=== PATIENT | male | born 1965 | race Caucasian/White ===

== ENCOUNTER 2020-05-28 15:25 | Inpatient (IN) | payer OTHER ==
[2020-05-28] MEDS ORDERED: IPRATROPIUM-ALBUTEROL 3 ML NEB INHALATION STA (16:02)
[2020-05-28] MEDS ORDERED: SODIUM CHLORIDE 0.9% 500 ML 500 ML IV STA (16:02)
--- NOTE | 2020-05-28 16:06 | ED ---
General Adult HPI - General Chief complaint: Weakness Stated complaint: weakness Time Seen by Provider: 05/28/20 15:45 Source: patient, EMS, RN notes reviewed, old records reviewed Limitations: no limitations - History of Present Illness Initial comments: This is a 54-year-old male who presents emergency department stating that he thinks he has grown a virus because he been short of breath over the last couple of weeks. Patient denies any cough. Patient denies any chest pain or palpitations. [place] and some of those people could've had coronavirus. Patient denies any abdominal pain. Patient denies nausea vomiting diarrhea. Patient denies headache patient denies numbness weakness per patient denies lightheadedness or dizziness. Patient states he also feels a little dehydrated even though he is eating and drinking normally. Patient denies any recent injury or trauma. - Related Data Home Medications Medication Instructions Recorded Confirmed No Known Home Medications 05/28/20 05/28/20 Allergies Allergy/AdvReac Type Severity Reaction Status Date / Time No Known Allergies Allergy Verified 05/28/20 17:39 Review of Systems ROS Statement: Those systems with pertinent positive or pertinent negative responses have been documented in the HPI. ROS Other: All systems not noted in ROS Statement are negative. Past Medical History Past Medical History: No Reported History History of Any Multi-Drug Resistant Organisms: None Reported Past Surgical History: Orthopedic Surgery Past Psychological History: No Psychological Hx Reported Smoking Status: Current every day smoker Past Alcohol Use History: Occasional Past Drug Use History: Marijuana General Exam - General Exam Comments Initial Comments: GENERAL: Patient is well-developed and well-nourished. Patient is nontoxic and well- hydrated and is in mild distress. ENT: Neck is soft and supple. No significant lymphadenopathy is noted. Oropharynx is clear. Moist mucous membranes. Neck has full range of motion without eliciting any pain. EYES: The sclera were anicteric and conjunctiva were pink and moist. Extraocular movements were intact and pupils were equal round and reactive to light. Eyelids were unremarkable. PULMONARY: Unlabored respirations. Good breath sounds bilaterally. No audible rales rhonchi or wheezing was noted. CARDIOVASCULAR: There is a regular rate and rhythm without any murmurs gallops or rubs. ABDOMEN: Soft and nontender with normal bowel sounds. SKIN: Skin is clear with no lesions or rashes and otherwise unremarkable. NEUROLOGIC: Patient is alert and oriented x3. Cranial nerves II through XII are grossly intact. Motor and sensory are also intact. Normal speech, volume and content. Symmetrical smile. MUSCULOSKELETAL: Normal extremities with adequate strength and full range of motion. No lower extremity swelling or edema. No calf tenderness. LYMPHATICS: No significant lymphadenopathy is noted PSYCHIATRIC: Normal psychiatric evaluation. Limitations: no limitations Course Vital Signs 05/28/20 05/28/20 05/28/20 15:44 17:58 18:08 Temperature 98.4 F Pulse Rate 101 H 95 94 Respiratory 17 Rate Blood Pressure 109/90 O2 Sat by Pulse 98 Oximetry Medical Decision Making - Medical Decision Making EKG shows sinus rhythm with occasional PAC at 99 bpm MS interval 280 QRSs 112 QTC intervals 408 QTC is 523. Patient's EKG shows no ST segment elevation or depression. CT of the chest shows no pulmonary edema in no acute abnormality. Patient urine came back and showed urinary tract infection at 7:45 PM. Patient received antibiotics and a blood culture at this time. Patient this time was considered septic. I spoke with Dr. Parks he agreed to admit the patient admitted the patient wrote admitting orders continued antibiotics on the floor. Patient received magnesium and potassium in the emergency department. Patient's ideal body weight is 78 kg. - Lab Data Result diagrams: 05/28/20 16:05 05/28/20 15:50 Lab Results 05/28/20 05/28/20 05/28/20 Range/Units 15:50 15:50 15:50 WBC (3.8-10.6) k/uL RBC (4.30-5.90) m/uL Hgb (13.0-17.5) gm/dL Hct (39.0-53.0) % MCV (80.0-100.0) fL MCH (25.0-35.0) pg MCHC (31.0-37.0) g/dL RDW (11.5-15.5) % Plt Count (150-450) k/uL Neutrophils % % Lymphocytes % % Monocytes % % Eosinophils % % Basophils % % Neutrophils # (1.3-7.7) k/uL Lymphocytes # (1.0-4.8) k/uL Monocytes # (0-1.0) k/uL Eosinophils # (0-0.7) k/uL Basophils # (0-0.2) k/uL Manual Slide Review Poikilocytosis (manual Macrocytosis PT 11.3 (9.0-12.0) sec INR 1.1 (<1.2) APTT 21.3 L (22.0-30.0) sec D-Dimer 1.56 H (<0.60) mg/L FEU Sodium 127 L (137-145) mmol/L Potassium 2.6 L* (3.5-5.1) mmol/L Chloride 83 L (98-107) mmol/L Carbon Dioxide 26 (22-30) mmol/L Anion Gap 18 mmol/L BUN 44 H (9-20) mg/dL Creatinine 1.43 H (0.66-1.25) mg/dL Est GFR (CKD-EPI)AfAm 63 (>60 ml/min/1.73 sqM) Est GFR (CKD-EPI)NonAf 55 (>60 ml/min/1.73 sqM) Glucose 114 H (74-99) mg/dL Lactic Ac Sepsis Rflx Plasma Lactic Acid Grant 2.3 H* (0.7-2.0) mmol/L Calcium 8.9 (8.4-10.2) mg/dL Magnesium 1.3 L (1.6-2.3) mg/dL Total Bilirubin 1.6 H (0.2-1.3) mg/dL AST 42 (17-59) U/L ALT 33 (4-49) U/L Alkaline Phosphatase 73 (38-126) U/L Troponin I (0.000-0.034) ng/mL NT-Pro-B Natriuret Pep pg/mL Total Protein 7.2 (6.3-8.2) g/dL Albumin 3.5 (3.5-5.0) g/dL Urine Color Urine Appearance (Clear) Urine pH (5.0-8.0) Ur Specific [place] (1.001-1.035) Urine Protein (Negative) Urine Glucose (UA) (Negative) Urine Ketones (Negative) Urine Blood (Negative) Urine Nitrite (Negative) Urine Bilirubin (Negative) Urine Urobilinogen (<2.0) mg/dL Ur Leukocyte Esterase (Negative) Urine WBC (0-5) /hpf Urine WBC Clumps (None) /hpf Ur Squamous Epith Cells (0-4) /hpf Urine Bacteria (None) /hpf Hyaline Casts (0-2) /lpf Urine Mucus (None) /hpf 05/28/20 05/28/20 05/28/20 Range/Units 15:50 16:05 16:05 WBC 16.7 H (3.8-10.6) k/uL RBC 3.69 L (4.30-5.90) m/uL Hgb 14.0 (13.0-17.5) gm/dL Hct 40.3 (39.0-53.0) % MCV 109.1 H (80.0-100.0) fL MCH 37.9 H (25.0-35.0) pg MCHC 34.7 (31.0-37.0) g/dL RDW 13.6 (11.5-15.5) % Plt Count 242 (150-450) k/uL Neutrophils % 78 % Lymphocytes % 11 % Monocytes % 9 % Eosinophils % 1 % Basophils % 0 % Neutrophils # 12.9 H (1.3-7.7) k/uL Lymphocytes # 1.9 (1.0-4.8) k/uL Monocytes # 1.5 H (0-1.0) k/uL Eosinophils # 0.1 (0-0.7) k/uL Basophils # 0.1 (0-0.2) k/uL Manual Slide Review Performed Poikilocytosis (manual Present Macrocytosis Marked A PT (9.0-12.0) sec INR (<1.2) APTT (22.0-30.0) sec D-Dimer (<0.60) mg/L FEU Sodium (137-145) mmol/L Potassium (3.5-5.1) mmol/L Chloride (98-107) mmol/L Carbon Dioxide (22-30) mmol/L Anion Gap mmol/L BUN (9-20) mg/dL Creatinine (0.66-1.25) mg/dL Est GFR (CKD-EPI)AfAm (>60 ml/min/1.73 sqM) Est GFR (CKD-EPI)NonAf (>60 ml/min/1.73 sqM) Glucose (74-99) mg/dL Lactic Ac Sepsis Rflx Plasma Lactic Acid [place] (0.7-2.0) mmol/L Calcium (8.4-10.2) mg/dL Magnesium (1.6-2.3) mg/dL Total Bilirubin (0.2-1.3) mg/dL AST (17-59) U/L ALT (4-49) U/L Alkaline Phosphatase (38-126) U/L Troponin I 0.013 (0.000-0.034) ng/mL NT-Pro-B Natriuret Pep 596 pg/mL Total Protein (6.3-8.2) g/dL Albumin (3.5-5.0) g/dL Urine Color Urine Appearance (Clear) Urine pH (5.0-8.0) Ur Specific [place] (1.001-1.035) Urine Protein (Negative) Urine Glucose (UA) (Negative) Urine Ketones (Negative) Urine Blood (Negative) Urine Nitrite (Negative) Urine Bilirubin (Negative) Urine Urobilinogen (<2.0) mg/dL Ur Leukocyte Esterase (Negative) Urine WBC (0-5) /hpf Urine WBC Clumps (None) /hpf Ur Squamous Epith Cells (0-4) /hpf Urine Bacteria (None) /hpf Hyaline Casts (0-2) /lpf Urine Mucus (None) /hpf 05/28/20 05/28/20 05/28/20 Range/Units 16:43 19:07 19:24 WBC (3.8-10.6) k/uL RBC (4.30-5.90) m/uL Hgb (13.0-17.5) gm/dL Hct (39.0-53.0) % MCV (80.0-100.0) fL MCH (25.0-35.0) pg MCHC (31.0-37.0) g/dL RDW (11.5-15.5) % Plt Count (150-450) k/uL Neutrophils % % Lymphocytes % % Monocytes % % Eosinophils % % Basophils % % Neutrophils # (1.3-7.7) k/uL Lymphocytes # (1.0-4.8) k/uL Monocytes # (0-1.0) k/uL Eosinophils # (0-0.7) k/uL Basophils # (0-0.2) k/uL Manual Slide Review Poikilocytosis (manual Macrocytosis PT (9.0-12.0) sec INR (<1.2) APTT (22.0-30.0) sec D-Dimer (<0.60) mg/L FEU Sodium (137-145) mmol/L Potassium (3.5-5.1) mmol/L Chloride (98-107) mmol/L Carbon Dioxide (22-30) mmol/L Anion Gap mmol/L BUN (9-20) mg/dL Creatinine (0.66-1.25) mg/dL Est GFR (CKD-EPI)AfAm (>60 ml/min/1.73 sqM) Est GFR (CKD-EPI)NonAf (>60 ml/min/1.73 sqM) Glucose (74-99) mg/dL Lactic Ac Sepsis Rflx Y Plasma Lactic Acid [place] 1.6 (0.7-2.0) mmol/L Calcium (8.4-10.2) mg/dL Magnesium (1.6-2.3) mg/dL Total Bilirubin (0.2-1.3) mg/dL AST (17-59) U/L ALT (4-49) U/L Alkaline Phosphatase (38-126) U/L Troponin I (0.000-0.034) ng/mL NT-Pro-B Natriuret Pep pg/mL Total Protein (6.3-8.2) g/dL Albumin (3.5-5.0) g/dL Urine Color Yellow Urine Appearance Cloudy (Clear) Urine pH 5.5 (5.0-8.0) Ur Specific [place] 1.040 H (1.001-1.035) Urine Protein Trace H (Negative) Urine Glucose (UA) Negative (Negative) Urine Ketones Trace H (Negative) Urine Blood Small H (Negative) Urine Nitrite Negative (Negative) Urine Bilirubin Negative (Negative) Urine Urobilinogen 3.0 (<2.0) mg/dL Ur Leukocyte Esterase Large H (Negative) Urine WBC >182 H (0-5) /hpf Urine WBC Clumps Many H (None) /hpf Ur Squamous Epith Cells 5 H (0-4) /hpf Urine Bacteria Occasional H (None) /hpf Hyaline Casts 8 H (0-2) /lpf Urine Mucus Rare H (None) /hpf Critical Care Time Critical Care Time: Yes Total Critical Care Time: 35 Disposition Clinical Impression: Urinary tract infection, Sepsis, Hypokalemia, Hypomagnesemia Disposition: ADMITTED IP TO THIS HOSP Referrals: None,Stated [Primary Care Provider] - 1-2 days Time of Disposition: 20:25
[2020-05-28 16:41] LABS: Albumin 3.5 g/dL (3.5-5.0); Calcium 8.9 mg/dL (8.4-10.2); Magnesium 1.3 mg/dL (1.6-2.3); Total Bilirubin 1.6 mg/dL (0.2-1.3); Total Protein 7.2 g/dL (6.3-8.2)
[2020-05-28 16:43] LABS: Potassium 2.6 mmol/L (3.5-5.1)
[2020-05-28 16:51] LABS: INR 1.1 (<1.2); Partial Thromboplastin Time 21.3 sec (22.0-30.0); Prothrombin Time 11.3 sec (9.0-12.0)
[2020-05-28 17:02] LABS: D-Dimer 1.56 mg/L FEU (<0.60)
[2020-05-28 17:26] LABS: Basophils # (A) 0.1 k/uL (0-0.2); Basophils % (A) 0 %; Eosinophils # (A) 0.1 k/uL (0-0.7); Eosinophils % (A) 1 %; HCT 40.3 % (39.0-53.0); Lymphocytes # (A) 1.9 k/uL (1.0-4.8); Lymphocytes % (A) 11 %; MCH 37.9 pg (25.0-35.0); MCHC 34.7 g/dL (31.0-37.0); MCV 109.1 fL (80.0-100.0); Macrocytosis Marked; Mean Platelet Volume 10.1; Monocytes # (A) 1.5 k/uL (0-1.0); Monocytes % (A) 9 %; Neutrophils # (A) 12.9 k/uL (1.3-7.7); Neutrophils % (A) 78 %; Platelet Count 242 k/uL (150-450); RBC 3.69 m/uL (4.30-5.90); RDW 13.6 % (11.5-15.5); WBC 16.7 k/uL (3.8-10.6)
--- NOTE | 2020-05-28 17:26 | XR ---
EXAMINATION: XR chest 2V DATE AND TIME: 05/28/2020 4:58 PM CLINICAL INDICATION: PHH; difficulty breathing TECHNIQUE: Departmental protocol COMPARISON: None FINDINGS: The lungs appear negative for acute processes. There appear to be two surgical clips which reject within the right lower lobe posterolaterally. The right pleural space shows blunting of the costophrenic angle on the right, with differential incl uding pleural thickening and/or scarring, versus small pleural effusion. However, the lateral view do es not confirm pleural effusion and, therefore, the finding is likely the former. The cardiac silhouette is not enlarged. The remainder of the mediastinal silhouette is unremarkable. The skeletal structures and soft tissues are negative for acute findings. IMPRESSION: 1. No acute pulmonary/pleural process. 2. Subtle right pleural space finding, likely representing peripheral thickening and/or scarring, tre tomically related to surgical clips.
[2020-05-28 17:47] LABS: Poikilocytosis (M) Present
[2020-05-28] MEDS ORDERED: SODIUM CHLORIDE 0.9% 500 ML 500 ML IV ONE (18:45)
--- NOTE | 2020-05-28 18:55 | CT ---
EXAMINATION TYPE: CT chest angio for PE with contrast and with 3-D reconstruction renderings DATE OF EXAM: 05/28/2020 COMPARISON: Chest x-ray 05/28/2020 HISTORY: elevated d-dimer, SOB, fatigue TECHNIQUE: Departmental protocol. Automated exposure control for dose reduction was used. CT DLP: 476.8 mGycm CONTRAST: CT Chest for pulmonary embolism performed with with IV Contrast, patient injected with 73cc mL of Isovue 370. FINDINGS: LUNGS: The airways unremarkable. The left lung is clear and well expanded. The right lung shows scatt ered ill-defined bands of added opacity in the upper and mid and lower lung zone, most notable in the lower lung zone. These are consistent with pulmonary scarring changes. If there is an outside prior CT, with advise direct comparison for an addendum to be made to this report. If none exist, then six- month follow-up CT characterization is recommended. PLEURAL SPACES: There is no pleural effusion or pneumothorax seen. MEDIASTINUM: There is satisfactory enhancement of the pulmonary artery and its branches, without defi nite CT evidence of pulmonary embolism. The aorta is unremarkable. There is evidence of moderate left ventricular hypertrophy. There is no cardiomegaly or pericardial effusion, but prominent left and ri ght coronary calcifications are demonstrated. There are no greater than 1 cm hilar or mediastinal lym ph nodes. No pericardial effusion is seen. OTHER: No additional significant abnormality is seen. IMPRESSION: 1. Negative for pulmonary embolism. 2. No acute pulmonary/pleural process/mediastinal. 3. Coronary calcifications with left ventricular hypertrophy. 4. Right lung parenchyma scarring, with six-month follow-up chest CT is advised unless direct compar rose can be made to a prior CT.
[2020-05-28] MEDS: POTASSIUM CHLORIDE ER 20 MEQ TAB.ER PO STA ×2 (19:12→20:13)
[2020-05-28] MEDS ORDERED: MAGNESIUM SULFATE-D5W PMX 1 GM in DEXTROSE/WATER 1 100ML.BAG IVPB ONE (19:24)
[2020-05-28] MEDS ORDERED: POTASSIUM CHLORIDE 20 MEQ in WATER FOR INJECTION 1 100ML.BAG IVPB ONE (19:30)
[2020-05-28 19:47] LABS: Appearance,Urine Cloudy (Clear); Bacteria,Urine Occasional /hpf; Bilirubin,Urine Negative (Negative); Blood,Urine Small (Negative); Color,Urine Yellow; Glucose,Urine (UA) Negative (Negative); Hyaline Casts,Urine 8 /lpf (0-2); Ketones,Urine Trace (Negative); Leukocyte Esterase,Urine Large (Negative); Mucus,Urine Rare /hpf; Nitrite,Urine Negative (Negative); PH, Urine 5.5 (5.0-8.0); Protein,Urine Trace (Negative); Squamous Epithelial Cell,Urine 5 /hpf (0-4); WBC,Urine >182 /hpf (0-5)
[2020-05-28] MEDS ORDERED: cefTRIAXone IN SWFI 1,000 MG/10 ML SYRINGE IVP STA (20:26)
[2020-05-28] MEDS ORDERED: SODIUM CHLORIDE 0.9% 1,000 ML IV ONE (20:26)
[2020-05-28] MEDS ORDERED: VANCOMYCIN IV PER PHARMACY 1 EACH MISC MISCELLANE PRN (20:27)
[2020-05-28] MEDS ORDERED: VANCOMYCIN 2,000 MG in SODIUM CHLORIDE 0.9% 500 ML 500 ML IVPB ONE (21:00)
[2020-05-28] MEDS ORDERED: LORazepam 2 MG/ML INJ IV STA (21:09)
[2020-05-28] MEDS: SODIUM CHLORIDE 0.9% 1,000 ML IV SCH (21:55)
[2020-05-28] MEDS ORDERED: ZOLPIDEM 5 MG TAB PO PRN (23:06)
[2020-05-28] MEDS ORDERED: LORazepam 2 MG/ML INJ IV PRN (23:07)
[2020-05-28] MEDS: LORazepam 2 MG/ML INJ IV PRN (23:14)
--- NOTE | 2020-05-29 00:05 | HP ---
HISTORY AND PHYSICAL A 54-year-old white male presents to the ER, short of breath over the last couple weeks, thought he had a virus. Denies any cough. CT of the chest was negative. He was around a lot of people that could have coronavirus. Denies abdominal pain, nausea, vomiting, diarrhea. He denied numbness or weakness or lightheaded, dizziness. He feels a little dehydrated. HOME MEDICINES: Negative. ALLERGIES: Negative. Current every day smoker. Occasional marijuana. REVIEW OF SYSTEMS: Fourteen-point review of systems negative. PHYSICAL EXAMINATION: Well developed, well nourished. HEENT: Neck supple. No mass. Pupils equal, round, reactive. LUNGS: Good breath sounds. No audible wheezes. CARDIAC: Regular rate and rhythm. ABDOMEN: Soft. SKIN: Warm and dry. Cranial nerves are intact neurologically. PSYCH: Fair mood and affect. Pulse is 95 to 100, temp 98.4, respiratory rate 16 to 18, blood pressure 109/90, O2 saturation 98. EKG sinus rhythm, no ST changes. CTA chest, no PE. UA shows severely high amount of white cells over 120. Blood cultures are being done. ASSESSMENT: 1. Urosepsis. 2. Hypokalemia. 3. Lactic acidosis. 4. Hyponatremia. 5. Leukocytosis secondary to urosepsis. 6. Prerenal renal insufficiency with dehydration. Broad-spectrum antibiotics, fluids. Monitor labs. Infectious Disease consult. Possible discharge if patient improves in the next couple days. He has sepsis due to UTI, hypokalemia, hypomagnesemia, replace electrolytes. MMODL / IJN: [id number] /
[2020-05-29] MEDS: LORazepam 2 MG/ML INJ IV PRN ×6 (01:19→20:14)
[2020-05-29] MEDS: SODIUM CHLORIDE 0.9% 1,000 ML IV SCH ×3 (05:53→20:13)
[2020-05-29] MEDS: VANCOMYCIN 2,000 MG in SODIUM CHLORIDE 0.9% 500 ML 500 ML IVPB SCH ×2 (10:05→23:36)
--- NOTE | 2020-05-30 00:09 | P.CONS ---
History of Present Illness - Reason for Consult Consult date: 05/29/20 Urosepsis Requesting physician: Jaya Parks - Chief Complaint Weakness x few days - History of Present Illness Patient is a 54-year-old male presenting to the hospital with generalized weakness and thinking he may have allen virus as he was marked with a bunch of people that have been infected however the patient denies having any fever or any chills on arrival to ER no shortness of breath no cough patient on arrival to the ER was noticed to be afebrile he did have elevated white count of 16,000 with a left shift no lymphopenia elevated d-dimer he did have a positive UA patient chest x-ray was negative subsequently did have CT angiogram that was negative for PE and did not show any groundglass opacities patient did have a nasopharyngeal swab which came back negative as well , Patient has been diagnosed with alcohol withdrawal DTs and has been started on Ativan, patient has received a few doses and at time of evaluation was completely out and was unable to provide any history so most information has been obtained from review the chart patient has been started on Rocephin and vancomycin and infectious disease was consulted with concern for possible urosepsis Review of Systems Positive points has been mentioned in HPI complete review could not be obtained because of his underlying mental status Past Medical History Past Medical History: Pneumonia Additional Past Medical History / Comment(s): gastric ulcer, ETOH-liquor, beer, daily History of Any Multi-Drug Resistant Organisms: None Reported Past Surgical History: Joint Replacement, Orthopedic Surgery Additional Past Surgical History / Comment(s): total hip (unsure of which one), closed reductions, recent weight loss Past Psychological History: No Psychological Hx Reported Smoking Status: Current every day smoker Past Alcohol Use History: Occasional Past Drug Use History: Marijuana Medications and Allergies Home Medications Medication Instructions Recorded Confirmed Type No Known Home Medications 05/28/20 05/28/20 History Allergies Allergy/AdvReac Type Severity Reaction Status Date / Time No Known Allergies Allergy Verified 05/28/20 17:39 Physical Exam Vitals: Vital Signs Temp Pulse Pulse Resp BP BP Pulse Ox 05/29/20 13:22 97.8 F 100 16 103/68 96 05/29/20 11:15 96.9 F L 101 H 16 166/122 97 05/29/20 08:50 99 16 157/101 97 05/29/20 07:50 97.4 F L 05/29/20 02:30 91 18 127/84 98 05/28/20 21:58 98.3 F 90 18 155/95 97 05/28/20 18:08 94 05/28/20 17:58 95 05/28/20 15:44 98.4 F 101 H 17 109/90 98 Intake and Output 05/29/20 05/29/20 05/29/20 06:59 14:59 22:59 Other: Weight 127.006 kg GENERAL DESCRIPTION: Middle-aged male lying in bed, no distress. No tachypnea or accessory muscle of respiration use. HEENT: Shows Pallor , no scleral icterus. Oral mucous membrane is dry. No pharyngeal erythema or thrush NECK: Trachea central, no thyromegaly. LUNGS: Unlabored breathing. Clear to auscultation anteriorly. No wheeze or crackle. HEART: S1, S2, regular rate and rhythm. No loud murmur ABDOMEN: Soft, no tenderness , guarding or rigidity, no organomegaly EXTREMITIES: No edema of feet. SKIN: No rash, no masses palpable. NEUROLOGICAL: The patient is sedated orientation could not be determined Results CBC & Chem 7: 05/28/20 16:05 05/28/20 15:50 Labs: Abnormal Lab Results - Last 24 Hours (Table) 05/28/20 05/28/20 05/28/20 Range/Units 15:50 15:50 15:50 WBC (3.8-10.6) k/uL RBC (4.30-5.90) m/uL MCV (80.0-100.0) fL MCH (25.0-35.0) pg Neutrophils # (1.3-7.7) k/uL Monocytes # (0-1.0) k/uL Macrocytosis APTT 21.3 L (22.0-30.0) sec D-Dimer 1.56 H (<0.60) mg/L FEU Sodium 127 L (137-145) mmol/L Potassium 2.6 L* (3.5-5.1) mmol/L Chloride 83 L (98-107) mmol/L BUN 44 H (9-20) mg/dL Creatinine 1.43 H (0.66-1.25) mg/dL Glucose 114 H (74-99) mg/dL Plasma Lactic Acid Grant 2.3 H* (0.7-2.0) mmol/L Magnesium 1.3 L (1.6-2.3) mg/dL Total Bilirubin 1.6 H (0.2-1.3) mg/dL Ur Specific [place] (1.001-1.035) Urine Protein (Negative) Urine Ketones (Negative) Urine Blood (Negative) Ur Leukocyte Esterase (Negative) Urine WBC (0-5) /hpf Urine WBC Clumps (None) /hpf Ur Squamous Epith Cells (0-4) /hpf Urine Bacteria (None) /hpf Hyaline Casts (0-2) /lpf Urine Mucus (None) /hpf 05/28/20 05/28/20 Range/Units 16:05 19:24 WBC 16.7 H (3.8-10.6) k/uL RBC 3.69 L (4.30-5.90) m/uL MCV 109.1 H (80.0-100.0) fL MCH 37.9 H (25.0-35.0) pg Neutrophils # 12.9 H (1.3-7.7) k/uL Monocytes # 1.5 H (0-1.0) k/uL Macrocytosis Marked A APTT (22.0-30.0) sec D-Dimer (<0.60) mg/L FEU Sodium (137-145) mmol/L Potassium (3.5-5.1) mmol/L Chloride (98-107) mmol/L BUN (9-20) mg/dL Creatinine (0.66-1.25) mg/dL Glucose (74-99) mg/dL Plasma Lactic Acid Grant (0.7-2.0) mmol/L Magnesium (1.6-2.3) mg/dL Total Bilirubin (0.2-1.3) mg/dL Ur Specific [place] 1.040 H (1.001-1.035) Urine Protein Trace H (Negative) Urine Ketones Trace H (Negative) Urine Blood Small H (Negative) Ur Leukocyte Esterase Large H (Negative) Urine WBC >182 H (0-5) /hpf Urine WBC Clumps Many H (None) /hpf Ur Squamous Epith Cells 5 H (0-4) /hpf Urine Bacteria Occasional H (None) /hpf Hyaline Casts 8 H (0-2) /lpf Urine Mucus Rare H (None) /hpf Microbiology - Last 24 Hours (Table) 05/28/20 19:24 Urine Culture - Preliminary Urine,Voided Assessment and Plan Assessment: 1- patient presented to the hospital with weakness in this patient did have significantly elevated white count he did have a positive UA with concern for symptomatic urinary tract infection patient currently undergoing DTs and has been sedated cerebral for a history however workup so far including a chest x- ray and CT angiogram that has been negative for PE or pneumonia abdominal soft with clinical examination and no evidence of any cellulitis (1) Urinary tract infection Current Visit: Yes Status: Acute Code(s): N39.0 - URINARY TRACT INFECTION, SITE NOT SPECIFIED SNOMED Code(s): 60705438 Plan: 1- Rocephin 1 g IV piggyback daily 2- discontinue vancomycin 3- IV fluids We will follow on clinical condition and cultures to further adjust medication if needed Thank you for this consultation will follow this patient with you Time with Patient: Greater than 30
[2020-05-30] MEDS: LORazepam 2 MG/ML INJ IV PRN ×4 (03:46→08:03)
[2020-05-30] MEDS: SODIUM CHLORIDE 0.9% 1,000 ML IV SCH ×3 (03:51→17:43)
[2020-05-30 08:53] LABS: African American GFR (CKD) >90 (>60 ml/min/1.73 sqM); Non-African American GFR(CKD) >90 (>60 ml/min/1.73 sqM)
[2020-05-30 14:00] LABS: African American GFR (CKD) >90 (>60 ml/min/1.73 sqM); Anion Gap 9 mmol/L; Blood Urea Nitrogen 21 mg/dL (9-20); Calcium 8.3 mg/dL (8.4-10.2); Carbon Dioxide 25 mmol/L (22-30); Chloride 99 mmol/L (98-107); Glucose 80 mg/dL (74-99); Magnesium 1.4 mg/dL (1.6-2.3); Non-African American GFR(CKD) >90 (>60 ml/min/1.73 sqM); Potassium 2.8 mmol/L (3.5-5.1); Sodium 133 mmol/L (137-145)
[2020-05-30] MEDS ORDERED: Potassium Replacement Protocol 1 EACH MISC MISCELLANE PRN (14:32)
[2020-05-30] MEDS ORDERED: Magnesium Replacement Protocol 1 EACH MISC MISCELLANE PRN (14:32)
[2020-05-30] MEDS: carvediloL 6.25 MG TAB PO SCH ×2 (14:42→16:09)
[2020-05-30] MEDS: POTASSIUM CHLORIDE ER 20 MEQ TAB.ER PO SCH ×2 (14:43→16:09)
[2020-05-30] MEDS: MAGNESIUM SULFATE-D5W PMX 1 GM in DEXTROSE/WATER 1 100ML.BAG IVPB SCH ×3 (14:43→17:39)
[2020-05-30] MEDS: THIAMINE 100 MG TAB PO SCH (16:09)
--- NOTE | 2020-05-30 16:38 | P.PN ---
Subjective Progress Note Date: 05/30/20 Principal diagnosis: this is a 54-year-old male who was recently admitted with shortness of breath and possible acute urinary tract infection and is being closely monitored. Cultures preliminary showing gram-negative bacilli and currently maintained on IV antibiotics in the form of ceftriaxone and will continue at this time. infectious disease is following. patient is also found to be hypokalemic and have hypomagnesemia and currently being replaced. Will repeat a.m. labs and monitor closely. only patient denies any chest pain, worsening shortness of breath, or palpitations. patient is afebrile. no reports of nausea or vomiting and patient is tolerating diet. Objective - Vital Signs Vital signs: Vital Signs Temp 97.6 F 05/30/20 07:53 Pulse 101 H 05/30/20 07:53 Resp 18 05/30/20 07:53 BP 169/101 05/30/20 07:53 Pulse Ox 97 05/30/20 07:53 Intake & Output 05/29/20 05/30/20 05/30/20 18:59 06:59 18:59 Intake Total 1800 Output Total 3 Balance 1797 Weight 127.006 kg Intake: Intake, IV Titration 1500 Amount Sodium Chloride 0.9% 1, 1000 000 ml @ 130 mls/hr IV . [id number] JACKIE Rx#:[id number] Vancomycin 2,000 mg In 500 Sodium Chloride 0.9% 500 ml 500 ml @ 167 mls/hr IVPB Q16H JACKIE Rx#: [id number] Oral 300 Output: Urine 3 Other: Voiding Method Incontinent # Voids 3 - Exam Gen: This is a 54-year-old male sitting up in bed, awake, alert and oriented 3, well-developed, well-nourished. HEENT: Head is atraumatic, normocephalic. Pupils equal, round. Sclerae is anicteric. NECK: Supple. No JVD. No lymphadenopathy. No thyromegaly. LUNGS: diminished breath sounds bilaterally noted with no wheezing or rhonchi noted. No intercostal retractions. HEART: S1, S2 ABDOMEN: Soft. Bowel sounds are present. No masses. No tenderness. EXTREMITIES: No pedal edema. No calf tenderness. NEUROLOGICAL: Patient is awake, alert and oriented x3. Cranial nerves 2 through 12 are grossly intact. - Labs CBC & Chem 7: 05/28/20 16:05 05/30/20 08:14 Labs: Abnormal Lab Results - Last 24 Hours (Table) 05/30/20 Range/Units 08:14 Sodium 133 L (137-145) mmol/L Potassium 2.8 L (3.5-5.1) mmol/L BUN 21 H (9-20) mg/dL Calcium 8.3 L (8.4-10.2) mg/dL Magnesium 1.4 L (1.6-2.3) mg/dL Microbiology - Last 24 Hours (Table) 05/28/20 19:24 Urine Culture - Preliminary Urine,Voided Gram Neg Bacilli 05/28/20 17:43 Blood Culture - Preliminary Blood No Growth after 24 hours Assessment and Plan Assessment: urosepsis, present on admission Hypokalemia Lactic acidosis Hyponatremia hypomagnesemia Leukocytosis secondary to urosepsis Prerenal renal insufficiency with dehydration plan: Continue current medications, management, and symptomatic treatment. continue to monitor electrolytes and replace as needed. will repeat a.m. labs. continue with IV fluid hydration. Further recommendations to follow.
[2020-05-31] MEDS: LORazepam 2 MG/ML INJ IV PRN (03:31)
[2020-05-31] MEDS: SODIUM CHLORIDE 0.9% 1,000 ML IV SCH ×2 (06:58→15:03)
--- NOTE | 2020-05-31 07:15 | PN ---
PROGRESS NOTE DATE OF SERVICE: 05/30/2020 REASON FOR FOLLOWUP: Urinary tract infection. INTERVAL HISTORY: Patient is currently afebrile. The patient seemed to be slightly more awake and alert today. He is breathing comfortably. Denies any headache. No chest pain. No abdominal pain or diarrhea. PHYSICAL EXAMINATION: Blood pressure 165/89 with a pulse of 87, temperature 98.1, he is 98% on room air. General description is a middle-aged male lying in bed in no distress. Respiratory system: Unlabored breathing. Clear to auscultation anteriorly. Heart S1, S2, regular rate and rhythm. Abdomen is soft, no tenderness. LABS: Urine showing gram-negative. DIAGNOSTIC IMPRESSION AND PLAN: Patient with gram-negative urinary tract infection. Patient is covered with Rocephin. To continue adjusting further based on culture report and monitor clinical course closely. MMODL / IJN: [id number] /
[2020-05-31 08:34] LABS: African American GFR (CKD) >90 (>60 ml/min/1.73 sqM); Anion Gap 9 mmol/L; Blood Urea Nitrogen 13 mg/dL (9-20); Calcium 8.1 mg/dL (8.4-10.2); Carbon Dioxide 21 mmol/L (22-30); Chloride 104 mmol/L (98-107); Glucose 61 mg/dL (74-99); Non-African American GFR(CKD) >90 (>60 ml/min/1.73 sqM); Sodium 134 mmol/L (137-145)
[2020-05-31 08:36] LABS: HCT 51.3 % (39.0-53.0); MCH 39.6 pg (25.0-35.0); MCHC 34.5 g/dL (31.0-37.0); Macrocytosis Marked; Mean Platelet Volume 9.4; RBC 4.47 m/uL (4.30-5.90); RDW 13.8 % (11.5-15.5); WBC 8.7 k/uL (3.8-10.6)
[2020-05-31 08:40] LABS: Magnesium 1.6 mg/dL (1.6-2.3)
[2020-05-31] MEDS ORDERED: Magnesium Replacement Protocol 1 EACH MISC MISCELLANE PRN (08:43)
[2020-05-31 08:44] LABS: HGB 17.7 gm/dL (13.0-17.5); MCV 114.8 fL (80.0-100.0); Platelet Count 117 k/uL (150-450)
[2020-05-31] MEDS: THIAMINE 100 MG TAB PO SCH ×2 (08:48→17:26)
[2020-05-31] MEDS: carvediloL 6.25 MG TAB PO SCH ×2 (08:48→17:26)
[2020-05-31] MEDS: ACETAMINOPHEN TAB 325 MG TAB PO PRN (09:01)
[2020-05-31] MEDS: MAGNESIUM SULFATE-D5W PMX 1 GM in DEXTROSE/WATER 1 100ML.BAG IVPB SCH ×2 (10:52→12:34)
--- NOTE | 2020-06-01 00:36 | PN ---
PROGRESS NOTE DATE OF SERVICE: 05/31/2020 REASON FOR FOLLOWUP: Klebsiella urinary tract infection. INTERVAL HISTORY: The patient is currently afebrile. The patient is breathing comfortably. He is more awake and alert. Denies having any headache. No chest pain, shortness of breath or cough. No abdominal pain or diarrhea. PHYSICAL EXAMINATION: Blood pressure 167/95 with a pulse of 83, temperature 98. He is 99% on room air. General description is a middle age male lying in bed in no distress. RESPIRATORY SYSTEM: Unlabored breathing, clear to auscultation anteriorly. HEART: S1, S2. Regular rate and rhythm. ABDOMEN: Soft, no tenderness. LABS: Hemoglobin is 17.7, white count 8.7, creatinine 0.66. Urine showing Klebsiella pneumoniae sensitive pathogen. DIAGNOSTIC IMPRESSION AND PLAN: Patient with Klebsiella urinary tract infection. Patient is covered with Rocephin to continue, finish therapy with oral Cipro on discharge. Monitor clinical course closely. MMODL / IJN: [id number] /
--- NOTE | 2020-06-01 01:15 | PN ---
PROGRESS NOTE This is a 54-year-old white male with alcohol encephalopathy, UTI, sepsis, leukocytosis. No chest pain or shortness of breath. No lightheadedness or syncope. Vital signs are stable, afebrile. CARDIOVASCULAR: S1, S2. LUNGS: Clear. GI: Soft. HEMATOLOGY: Negative Homans. ASSESSMENT: 1. Urinary tract infection. 2. Sepsis. 3. Leukocytosis. 4. Alcoholic encephalopathy. 5. Alcohol dependence. Continue with current treatment. Antibiotics, alcohol withdrawal treatment. Follow up in the next 24 to 48 hours. Possible discharge. MMODL / IJN: [id number] /
[2020-06-01] MEDS: SODIUM CHLORIDE 0.9% 1,000 ML IV SCH ×3 (02:53→19:56)
[2020-06-01] MEDS: THIAMINE 100 MG TAB PO SCH ×2 (07:53→16:22)
[2020-06-01] MEDS: carvediloL 6.25 MG TAB PO SCH ×2 (07:53→16:22)
[2020-06-01] MEDS: amLODIPine 5 MG TAB PO SCH (07:53)
[2020-06-01] MEDS: CIPROFLOXACIN HCL 500 MG TAB PO SCH ×2 (09:11→19:55)
[2020-06-01 10:35] LABS: ALT 21 U/L (4-49); AST 35 U/L (17-59); African American GFR (CKD) >90 (>60 ml/min/1.73 sqM); Albumin 2.4 g/dL (3.5-5.0); Alkaline Phosphatase 53 U/L (38-126); Anion Gap 7 mmol/L; Blood Urea Nitrogen 8 mg/dL (9-20); Calcium 7.9 mg/dL (8.4-10.2); Carbon Dioxide 26 mmol/L (22-30); Chloride 101 mmol/L (98-107); Glucose 65 mg/dL (74-99); Magnesium 1.4 mg/dL (1.6-2.3); Non-African American GFR(CKD) >90 (>60 ml/min/1.73 sqM); Potassium 3.1 mmol/L (3.5-5.1); Sodium 134 mmol/L (137-145); Total Bilirubin 0.8 mg/dL (0.2-1.3); Total Protein 5.6 g/dL (6.3-8.2)
[2020-06-01 10:36] LABS: Basophils % (A) 1 %; Eosinophils # (A) 0.2 k/uL (0-0.7); Eosinophils % (A) 3 %; HCT 36.5 % (39.0-53.0); Lymphocytes # (A) 1.7 k/uL (1.0-4.8); Lymphocytes % (A) 23 %; MCH 39.3 pg (25.0-35.0); MCHC 34.1 g/dL (31.0-37.0); MCV 115.2 fL (80.0-100.0); Macrocytosis Marked; Mean Platelet Volume 10.3; Monocytes # (A) 0.5 k/uL (0-1.0); Monocytes % (A) 7 %; Neutrophils # (A) 4.7 k/uL (1.3-7.7); Neutrophils % (A) 66 %; Platelet Count 166 k/uL (150-450); RBC 3.17 m/uL (4.30-5.90); RDW 13.9 % (11.5-15.5); WBC 7.1 k/uL (3.8-10.6)
[2020-06-01 10:39] LABS: HGB 12.5 gm/dL (13.0-17.5)
[2020-06-01] MEDS: MAGNESIUM SULFATE-D5W PMX 1 GM in DEXTROSE/WATER 1 100ML.BAG IVPB SCH ×3 (13:27→16:23)
[2020-06-01] MEDS: POTASSIUM CHLORIDE ER 20 MEQ TAB.ER PO SCH ×2 (13:27→14:27)
--- NOTE | 2020-06-01 21:42 | PN ---
PROGRESS NOTE DATE OF SERVICE: 06/01/2020 REASON FOR FOLLOWUP: Urinary tract infection. INTERVAL HISTORY: The patient is currently afebrile. The patient is breathing comfortably. The patient denies having any chest pain or shortness of breath or cough. No nausea, no vomiting, no abdominal pain or diarrhea. PHYSICAL EXAMINATION: Blood pressure 142/87, pulse 75, temperature 97.7. He is 97% on room air. General description is a young male lying in bed in no distress. RESPIRATORY SYSTEM: Unlabored breathing. Clear to auscultation anteriorly. HEART: S1, S2. Regular rate and rhythm. ABDOMEN: Soft. No tenderness. LABS: Hemoglobin is 10.5, white count 7.1, creatinine 0.61. Urine with Klebsiella. DIAGNOSTIC IMPRESSION AND PLAN: Patient with Klebsiella urinary tract infection. The patient is currently covered with Rocephin. Antibiotic has been switched to Cipro as well. To discontinue the Rocephin and monitor clinical course closely. MMODL / IJN: [id number] /
--- NOTE | 2020-06-02 00:40 | PN ---
PROGRESS NOTE A 54-year-old white male. Denies any chest pain or shortness of breath or cough. No nausea or vomiting. No abdominal pain. No diarrhea Temperature 97.7, O2 of 97% on room air, blood pressure is 140s over 80s. CARDIOVASCULAR: S1, S2. LUNGS: Are clear. GI: Soft. HEMATOLOGY: Negative Homans. Hemoglobin , white count 7.1, creatinine 0.61. Urine with Klebsiella. Klebsiella UTI, covered with Rocephin and switch to oral Cipro. Discharge home tomorrow as he is greatly improved from alcohol withdrawal and more mentally with it at this time. Go home on Cipro tomorrow. MMODL / IJN: [id number] /
[2020-06-02] MEDS: ACETAMINOPHEN TAB 325 MG TAB PO PRN ×4 (02:46→23:31)
[2020-06-02] MEDS: SODIUM CHLORIDE 0.9% 1,000 ML IV SCH (05:54)
[2020-06-02 08:37] LABS: HCT 33.8 % (39.0-53.0); HGB 11.4 gm/dL (13.0-17.5); MCH 37.8 pg (25.0-35.0); MCHC 33.7 g/dL (31.0-37.0); MCV 112.1 fL (80.0-100.0); Macrocytosis Marked; Mean Platelet Volume 9.4; Platelet Count 175 k/uL (150-450); RBC 3.01 m/uL (4.30-5.90); RDW 13.7 % (11.5-15.5); WBC 8.3 k/uL (3.8-10.6)
[2020-06-02 08:45] LABS: ALT 20 U/L (4-49); AST 30 U/L (17-59); African American GFR (CKD) >90 (>60 ml/min/1.73 sqM); Albumin 2.4 g/dL (3.5-5.0); Alkaline Phosphatase 50 U/L (38-126); Anion Gap 6 mmol/L; Blood Urea Nitrogen 6 mg/dL (9-20); Calcium 7.6 mg/dL (8.4-10.2); Carbon Dioxide 25 mmol/L (22-30); Chloride 105 mmol/L (98-107); Glucose 77 mg/dL (74-99); Magnesium 1.5 mg/dL (1.6-2.3); Non-African American GFR(CKD) >90 (>60 ml/min/1.73 sqM); Sodium 136 mmol/L (137-145); Total Bilirubin 0.8 mg/dL (0.2-1.3); Total Protein 5.5 g/dL (6.3-8.2)
[2020-06-02] MEDS: POTASSIUM CHLORIDE ER 20 MEQ TAB.ER PO SCH ×2 (09:38→12:06)
[2020-06-02] MEDS: THIAMINE 100 MG TAB PO SCH ×2 (09:39→18:10)
[2020-06-02] MEDS: amLODIPine 5 MG TAB PO SCH (09:39)
[2020-06-02] MEDS: carvediloL 6.25 MG TAB PO SCH ×2 (09:39→18:09)
[2020-06-02] MEDS: CIPROFLOXACIN HCL 500 MG TAB PO SCH ×2 (09:39→21:00)
--- NOTE | 2020-06-02 10:36 | P.DS ---
Providers Date of admission: 05/28/20 20:22 Expected date of discharge: 06/02/20 Attending physician: Jaya Parks Consults: 05/28/20 22:40 Consult Physician Routine Consulting Provider: Rossana Beck Consult Reason/Comments: urosepsis Do you want consulting provider notified?: Yes Primary care physician: Stated None Hospital Course: Final Diagnoses: Sepsis secondary to acute UTI with Klebsiella pneumoniae, present on admission Leukocytosis secondary to the above, resolved Lactic acidosis, resolved Hypovolemic hyponatremia, improving Acute renal failure, prerenal, secondary to dehydration, present on admission, improved Hypokalemia Hypomagnesemia History of alcohol abuse, reports decreased Alcohol use Ongoing Nicotine dependence History of peptic ulcer disease Hospital Course:This is a 54-year-old gentleman admitted with multiple medical issues, including sepsis, acute UTI, dehydration, electrolyte imbalance. Maintained on gentle IV fluid hydration, IV antibiotics as per infectious disease. Significant clinical improvement. Evaluated by PT/OT with subacute rehab recommended. Currently receiving supplementation for magnesium and potassium, recheck levels pending. Patient will be discharged today to subacute rehab., pending authorization, in a stable condition with guarded prognosis. Microbiology 05/28/20 17:43 Blood Blood Culture - Preliminary No Growth after 96 hours 05/28/20 19:24 Urine,Voided Urine Culture - Final Klebsiella pneumoniae The impression and plan of care has been dictated as directed. : I performed a history and examination of this patient, discussed the same with the dictator. I agree with the dictator's note ,documented as a scribe. Any additional findings or plans will be noted. Patient Condition at Discharge: Stable Plan - Discharge Summary New Discharge Prescriptions: New Ciprofloxacin HCl [Cipro] 500 mg PO BID #14 tab carvediloL [Coreg] 6.25 mg PO BID-W/MEALS #60 tab amLODIPine [Norvasc] 5 mg PO DAILY #30 tab Thiamine [Vitamin B-1] 100 mg PO DAILY #30 tab Folic Acid 1 mg PO DAILY #30 tablet Multivitamins, Thera [Multivitamin (formulary)] 1 tab PO DAILY #30 tablet Acetaminophen Tab [Tylenol] 650 mg PO Q6HR PRN tab PRN Reason: Fever And/ Or Pain Discharge Medication List Acetaminophen Tab [Tylenol] 650 mg PO Q6HR PRN tab 06/02/20 [Rx] Ciprofloxacin HCl [Cipro] 500 mg PO BID #14 tab 06/02/20 [Rx] Folic Acid 1 mg PO DAILY #30 tablet 06/02/20 [Rx] Multivitamins, Thera [Multivitamin (formulary)] 1 tab PO DAILY #30 tablet 06/02/20 [Rx] Thiamine [Vitamin B-1] 100 mg PO DAILY #30 tab 06/02/20 [Rx] amLODIPine [Norvasc] 5 mg PO DAILY #30 tab 06/02/20 [Rx] carvediloL [Coreg] 6.25 mg PO BID-W/MEALS #60 tab 06/02/20 [Rx] Follow up Appointment(s)/Referral(s): Jaya Parks MD [STAFF PHYSICIAN] - 3 Days Ambulatory/Diagnostic Orders: Complete Blood Count w/diff [LAB.AMB] Time Frame: 3 Days, Location: None Selected Activity/Diet/Wound Care/Special Instructions: Pending magnesium and potassium supplementation and recheck levels within normal limits.
[2020-06-02 11:59] LABS: Eosinophils # (M) 0.08 k/uL (0-0.7); Lymphocytes # (M) 1.66 k/uL (1.0-4.8); Monocytes # (M) 0.75 k/uL (0-1.0); Neutrophils # (M) 5.81 k/uL (1.3-7.7); Neutrophils % (M) 70 %; Nucleated Red Blood Cells 0 /100 WBC (0-0); Total Cells Counted 100
--- NOTE | 2020-06-02 12:54 | PN ---
PROGRESS NOTE DATE OF SERVICE: 06/02/2020 REASON FOR FOLLOWUP: Klebsiella urinary tract infection. INTERVAL HISTORY: Patient is currently afebrile. The patient is breathing comfortably. Denies having any chest pain, no cough. No nausea, no vomiting. No abdominal pain, no diarrhea. PHYSICAL EXAMINATION: Blood pressure 149/91 with a pulse of 79, temperature is 97.7, he is 99% on room air. General description is a middle-aged male, lying in bed in no distress. RESPIRATORY SYSTEM: Unlabored breathing, clear to auscultation anteriorly. HEART: S1, S2. Regular rate and rhythm. ABDOMEN: Soft, no tenderness. LABS: Hemoglobin 11.4, white count 8.3, BUN of 6, creatinine 0.68. DIAGNOSTIC IMPRESSION AND PLAN: Patient with Klebsiella pneumoniae urinary tract infection. Overall improvement. Finish therapy with oral Cipro for another week and close outpatient followup. MMODL / IJN: [id number] /
[2020-06-02] MEDS: SODIUM CHLORIDE 0.9% 1,000 ML with POTASSIUM CHLORIDE 40 MEQ IV SCH ×4 (15:50→21:10)
--- NOTE | 2020-06-03 00:37 | PN ---
PROGRESS NOTE Continue Norvasc and Coreg for blood pressure. Thiamine for alcohol withdrawal. Cipro for antibiotics. Await for [facility] placement tomorrow. CARDIOVASCULAR: S1, S2. GI: Soft. HEMATOLOGY: Negative Homans. PSYCH: Fair mood and affect. ASSESSMENT: 1. Urinary tract infection. 2. Metabolic encephalopathy due to intoxication, dependence. Continue current treatment. Possible discharge to [facility] tomorrow. MMODL / IJN: [id number] /
[2020-06-03] MEDS ORDERED: hydrALAZINE HCL 20 MG/ML 1 ML VIAL IVP PRN (00:43)
[2020-06-03 01:35] VITALS: RESP 19
[2020-06-03] MEDS: SODIUM CHLORIDE 0.9% 1,000 ML with POTASSIUM CHLORIDE 40 MEQ IV SCH ×2 (05:37)
[2020-06-03 07:35] VITALS: BP 153/90; PULSE 86; TEMP 98.2
[2020-06-03] MEDS: CIPROFLOXACIN HCL 500 MG TAB PO SCH (08:01)
[2020-06-03] MEDS: amLODIPine 5 MG TAB PO SCH (08:01)
[2020-06-03] MEDS: carvediloL 6.25 MG TAB PO SCH (08:01)
[2020-06-03] MEDS: THIAMINE 100 MG TAB PO SCH (08:01)
[2020-06-03 11:05] LABS: Magnesium 1.3 mg/dL (1.6-2.3); Potassium 3.6 mmol/L (3.5-5.1)
--- NOTE | 2020-06-03 12:59 | PN ---
PROGRESS NOTE DATE OF SERVICE: 06/03/2020 REASON FOR FOLLOWUP: ESBL urinary tract infection. INTERVAL HISTORY: Patient is currently afebrile, patient is breathing comfortably. Patient denies having any chest pain. No shortness of breath or cough. No nausea, no vomiting. No abdominal pain, no diarrhea. PHYSICAL EXAMINATION: Blood pressure 150/90 with a pulse of 86, temperature 98.2, he is 99% on room air. General description is a middle-aged male, lying in bed in no distress. RESPIRATORY SYSTEM: Unlabored breathing, clear to auscultation anteriorly. HEART: S1, S2. Regular rate and rhythm. ABDOMEN: Soft, no tenderness. LABS: No new labs today. 3.6, mag is 1.3. DIAGNOSTIC IMPRESSION AND PLAN: Patient with Klebsiella pneumoniae urinary tract infection in this patient who has shown overall clinical improvement. He is currently on Rocephin for about a week to finish course of therapy. Continue supportive care. MMODL / IJN: [id number] /
== END 2020-06-03 15:45 | DRG 871 ==
LOC: EC 15:25 → 4SSUR 20:22
PROVIDERS: ADMIT Family Medicine; ATTEND Family Medicine
DX: A41.59 Other Gram-negative sepsis (principal); G93.41 Metabolic encephalopathy; E87.2 Acidosis; N39.0 Urinary tract infection, site not specified; E87.1 Hypo-osmolality and hyponatremia; F10.231 Alcohol dependence with withdrawal delirium; N17.9 Acute kidney failure, unspecified; E83.42 Hypomagnesemia; E86.0 Dehydration; E86.1 Hypovolemia; F17.200 Nicotine dependence, unspecified, uncomplicated; Z11.59 Encounter for screening for other viral diseases; E87.6 Hypokalemia; Z96.649 Presence of unspecified artificial hip joint; G31.2 Degeneration of nervous system due to alcohol; Z87.11 Personal history of peptic ulcer disease; Z87.01 Personal history of pneumonia (recurrent)
CPT/HCPCS: 36415; 71046; 71275; 80048; 80053; 81001; 82565; 83605; 83735; 83880; 84132; 84443; 84484; 85025; 85027; 85379; 85610; 85730; 87040; 87077; 87086; 87186; 93005; 94640; 96360; 96361; 96365; 96366; 96367; 96368; 96374; 96376; 99291

== ENCOUNTER 2020-06-10 00:59 | Observation (INO) | payer OTHER ==
[2020-06-10] MEDS ORDERED: HYDROmorphone 0.5 MG/0.5 ML SYRINGE IVP STA (01:33)
--- NOTE | 2020-06-10 02:15 | XR ---
EXAM: XR Pelvis, 1 or 2 Views CLINICAL HISTORY: ITS.REASON XR Reason: fall TECHNIQUE: Frontal view of the pelvis. COMPARISON: None FINDINGS: Bones/joints: Posterior dislocation of the left hip. Left hip prosthesis. No displaced fracture. Soft tissues: Unremarkable. IMPRESSION: Posterior dislocation of the left hip.
[2020-06-10] MEDS ORDERED: PROPOFOL 10 MG/ML 20 ML VIAL IV ONE ×2 (02:25→12:28)
--- NOTE | 2020-06-10 04:04 | ED ---
General Adult HPI - General Chief complaint: Fall Stated complaint: L hip injury Time Seen by Provider: 06/10/20 01:06 Source: patient, EMS Mode of arrival: EMS Limitations: altered mental status - History of Present Illness Initial comments: This patient is a 54-year-old man in [facility] to be evaluated for left hip pain. The alf reports that the patient did have a fall. They reportedly had x-ray of the left hip that revealed dislocation of the left prosthetic hip joint. The patient states that he believes his surgeon was Dr. Marcellus Manjarrez. He states that this hip has had previous dislocations. It had to be reduced in the operating room. The patient states that he has been having intermittent left hip pains and falling going back for some time now but not able to state exactly how long this is been. Review the records reveals that the patient had been admitted here and discharged on June 03 after episode of sepsis felt to be related to urinary tract infection. Patient denies any other injury related to fall. -: unknown Location: left, lower extremity Radiation: non-radiation Quality: aching Consistency: intermittent (Mainly when the patient attempts to move) Improves with: immobilization Worsens with: movement Associated Symptoms: denies other symptoms Treatments Prior to Arrival: none - Related Data Previous Rx's Medication Instructions Recorded Acetaminophen Tab [Tylenol] 650 mg PO Q6HR PRN tab 06/02/20 Folic Acid 1 mg PO DAILY #30 tablet 06/02/20 Multivitamins, Thera [Multivitamin 1 tab PO DAILY #30 tablet 06/02/20 (formulary)] Thiamine [Vitamin B-1] 100 mg PO DAILY #30 tab 06/02/20 amLODIPine [Norvasc] 5 mg PO DAILY #30 tab 06/02/20 carvediloL [Coreg] 6.25 mg PO BID-W/MEALS #60 tab 06/02/20 Allergies Allergy/AdvReac Type Severity Reaction Status Date / Time No Known Allergies Allergy Verified 06/10/20 07:49 Review of Systems ROS Statement: Those systems with pertinent positive or pertinent negative responses have been documented in the HPI. ROS Other: All systems not noted in ROS Statement are negative. Constitutional: Denies: fever Respiratory: Denies: cough, dyspnea Cardiovascular: Denies: chest pain, edema, syncope Gastrointestinal: Denies: abdominal pain, vomiting, diarrhea Genitourinary: Denies: dysuria, hematuria Musculoskeletal: Reports: as per HPI, arthralgia (Left hip pain) Skin: Denies: rash Neurological: Denies: headache, weakness, numbness, paresthesias Past Medical History Past Medical History: Pneumonia Additional Past Medical History / Comment(s): gastric ulcer, ETOH-liquor, beer, daily History of Any Multi-Drug Resistant Organisms: None Reported Past Surgical History: Joint Replacement, Orthopedic Surgery Additional Past Surgical History / Comment(s): total hip (unsure of which one), closed reductions, recent weight loss Past Psychological History: No Psychological Hx Reported Smoking Status: Current every day smoker Past Alcohol Use History: Occasional Past Drug Use History: Marijuana General Exam Limitations: altered mental status General appearance: alert, in no apparent distress Head exam: Present: atraumatic, normocephalic Eye exam: Present: normal appearance ENT exam: Present: mucous membranes dry Neck exam: Present: full ROM. Absent: tenderness Respiratory exam: Present: normal lung sounds bilaterally. Absent: respiratory distress, wheezes, rales, rhonchi, stridor Cardiovascular Exam: Present: regular rate, normal rhythm, normal heart sounds. Absent: systolic murmur, diastolic murmur, rubs, gallop GI/Abdominal exam: Present: soft. Absent: distended, tenderness, guarding, rebound, rigid, mass Extremities exam: Present: normal capillary refill, other (There is shortening of the left lower extremity. Distal pulses are intact and there is good capillary refill. No sensory deficit. Patient able to move toes.). Absent: pedal edema Back exam: Absent: vertebral tenderness Neurological exam: Present: alert. Absent: motor sensory deficit Skin exam: Present: warm, dry, intact, normal color. Absent: rash Course Vital Signs 06/10/20 06/10/20 06/10/20 01:01 03:05 03:10 Temperature 98.3 F Pulse Rate 90 84 81 Pulse Rate [ Pulse Oximetery ] Respiratory 16 18 18 Rate Blood Pressure 102/81 144/101 112/43 Blood Pressure [Right Arm] O2 Sat by Pulse 99 97 100 Oximetry 06/10/20 06/10/20 06/10/20 03:15 03:20 03:25 Temperature Pulse Rate 85 76 86 Pulse Rate [ Pulse Oximetery ] Respiratory 18 18 18 Rate Blood Pressure 113/86 95/83 109/86 Blood Pressure [Right Arm] O2 Sat by Pulse 100 100 100 Oximetry 06/10/20 06/10/20 06/10/20 03:30 03:45 04:00 Temperature Pulse Rate 87 83 84 Pulse Rate [ Pulse Oximetery ] Respiratory 18 18 16 Rate Blood Pressure 108/57 114/83 155/95 Blood Pressure [Right Arm] O2 Sat by Pulse 100 100 100 Oximetry 06/10/20 06/10/20 06/10/20 04:15 04:30 05:02 Temperature 98.1 F Pulse Rate 81 84 Pulse Rate [ 83 Pulse Oximetery ] Respiratory 20 18 16 Rate Blood Pressure 137/86 124/76 Blood Pressure 158/98 [Right Arm] O2 Sat by Pulse 98 100 100 Oximetry Procedures - [place] Protocol (Time Out) Procedure Performed:: Reduction of left hip Performing Provider: Jose Alfredo Wright Nurse: Nargis Pitts Respiratory Therapist: Alicia Thomas Patient Identification (2 identifiers required): Verbal, Arm Band, Name, Birthdate, Medical Record Number 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 Confirmed: Identity, Site, Procedure, Consent Site: left hip Site Marked: No Site Verified With Patient/Guardian: Yes Final Confirmation: Procedure, Site - Orthopedic Joint Reduction Joint #1 Consent Obtained: written consent Side: left Joint Reduction Location: hip Analgesia: procedural sedation Technique Used: traction/counter-traction Post-Reduction Neuro Exam: intact Post-Reduction Vascular Exam: intact Post Reduction X-Ray Obtained: Yes Post Reduction X-Ray Results: reduced Patient Tolerated Procedure: well - Procedural Sedation Procedural Sedation Start Time: 03:05 Procedural Sedation Stop Time: 03:30 Indications: fracture/dislocation reduction ASA Class: II Mallampati Airway Score: 2 Preparation: director of cardiac rehabilitation applied, pulse oximeter, capnometry used, supplemental O2 applied, suction/airway equipment at bedside, IV secured IV Propofol Dose (mgs): 145 Complications: none Patient Tolerated Procedure: well, no complications Medical Decision Making - Medical Decision Making Patient's 54-year-old man from [facility] with left hip dislocation. We then discussed risks and benefits of sedation and closed reduction. Patient did prov luigi written consent. Time out performed. The patient did have procedural sedation. Closed reduction performed by myself and conjunction with the physician anatomic pathology assistant. They did seem to be successful reduction but as traction was released the it came out of joint. Patient was given additional 50 mg of propofol and the hip again reduced this time x-ray was taken with traction and this did seem to show reduction but as the traction was relax the hip moved proximal and was out of position. The patient did not have complication. Discussed with patient and he would like to stay here to be seen by orthopedics. Case discussed with Dr. Padilla, who is on-call and will see the patient. - Lab Data Result diagrams: 06/10/20 04:19 06/10/20 04:19 Disposition Clinical Impression: Hip dislocation, left Disposition: ADMITTED IP TO THIS HOSP Condition: Fair Is patient prescribed a controlled substance at d/c from ED?: No
[2020-06-10] MEDS ORDERED: ONDANSETRON 4 MG/2 ML VIAL IVP PRN (04:12)
[2020-06-10] MEDS ORDERED: NALOXONE 0.4 MG/ML 1 ML VIAL IV PRN (04:12)
[2020-06-10] MEDS ORDERED: MORPHINE SULFATE 4 MG/ML SYRINGE IV PRN (04:12)
--- NOTE | 2020-06-10 04:14 | XR ---
EXAM: XR Left Hip With Pelvis When Performed, 2 or 3 Views CLINICAL HISTORY: ITS.REASON XR Reason: Post reduction TECHNIQUE: Two or three views of the left hip with pelvis when performed. COMPARISON: Left hip radiographs on 06/10/2020 at 153 hours FINDINGS: Bones/joints: Persistent dislocation of the left hip prosthesis. No displaced fracture. Soft tissues: Unremarkable. IMPRESSION: Persistent dislocation of the left hip prosthesis.
--- NOTE | 2020-06-10 04:14 | XR ---
EXAM: XR Left Hip With Pelvis When Performed, 2 or 3 Views CLINICAL HISTORY: ITS.REASON XR Reason: reduction TECHNIQUE: Two or three views of the left hip with pelvis when performed. COMPARISON: Multiple same day left hip radiographs. FINDINGS: Bones/joints: Persistent dislocation of the left hip prosthesis. No displaced fracture. Soft tissues: Unremarkable. IMPRESSION: Persistent dislocation of the left hip prosthesis.
--- NOTE | 2020-06-10 04:16 | XR ---
EXAM: XR Left Hip With Pelvis When Performed, 2 or 3 Views CLINICAL HISTORY: ITS.REASON XR Reason: post reduction TECHNIQUE: Two or three views of the left hip with pelvis when performed. COMPARISON: Multiple same-day left hip radiographs FINDINGS: Bones/joints: Improved alignment of the left hip prosthesis with traction, but the femoral prosthesis does not sit normally within the cup of the acetabular prosthesis. Dislocation of the left hip prosthesis without traction. No displaced fracture. Soft tissues: Unremarkable. IMPRESSION: 1. Improved alignment of the left hip prosthesis with traction, but the femoral prosthesis still does not sit normally within the cup of the acetabular prosthesis. 2. Dislocation of the left hip prosthesis without traction.
[2020-06-10 04:41] LABS: Basophils % (A) 0 %; Eosinophils # (A) 0.1 k/uL (0-0.7); Eosinophils % (A) 1 %; HCT 35.3 % (39.0-53.0); HGB 11.5 gm/dL (13.0-17.5); Lymphocytes # (A) 1.9 k/uL (1.0-4.8); Lymphocytes % (A) 14 %; MCH 36.7 pg (25.0-35.0); MCHC 32.5 g/dL (31.0-37.0); MCV 113.1 fL (80.0-100.0); Macrocytosis Marked; Mean Platelet Volume 9.1; Monocytes # (A) 0.8 k/uL (0-1.0); Monocytes % (A) 6 %; Neutrophils # (A) 10.6 k/uL (1.3-7.7); Neutrophils % (A) 78 %; Platelet Count 256 k/uL (150-450); RBC 3.12 m/uL (4.30-5.90); RDW 13.7 % (11.5-15.5); WBC 13.7 k/uL (3.8-10.6)
[2020-06-10 04:44] LABS: Appearance,Urine Clear (Clear); Bacteria,Urine Rare /hpf; Bilirubin,Urine Negative (Negative); Blood,Urine Negative (Negative); Color,Urine Yellow; Glucose,Urine (UA) Negative (Negative); Hyaline Casts,Urine 1 /lpf (0-2); Ketones,Urine Negative (Negative); Leukocyte Esterase,Urine Negative (Negative); Mucus,Urine Rare /hpf; Nitrite,Urine Negative (Negative); PH, Urine 6.5 (5.0-8.0); Protein,Urine 1+ (Negative); RBC,Urine 1 /hpf (0-5); Specific Gravity,Urine 1.017 (1.001-1.035); Squamous Epithelial Cell,Urine <1 /hpf (0-4); Urobilinogen,Urine <2.0 mg/dL (<2.0); WBC,Urine 1 /hpf (0-5)
[2020-06-10 04:56] LABS: ALT 28 U/L (4-49); AST 43 U/L (17-59); African American GFR (CKD) >90 (>60 ml/min/1.73 sqM); Alkaline Phosphatase 87 U/L (38-126); Anion Gap 6 mmol/L; Blood Urea Nitrogen 9 mg/dL (9-20); Calcium 8.8 mg/dL (8.4-10.2); Carbon Dioxide 25 mmol/L (22-30); Chloride 102 mmol/L (98-107); Glucose 100 mg/dL (74-99); Non-African American GFR(CKD) >90 (>60 ml/min/1.73 sqM); Sodium 133 mmol/L (137-145); Total Bilirubin 1.1 mg/dL (0.2-1.3); Total Protein 6.7 g/dL (6.3-8.2)
[2020-06-10] MEDS: SODIUM CHLORIDE 0.9% 1,000 ML IV SCH ×3 (05:28→17:05)
[2020-06-10 06:38] LABS: Prothrombin Time 10.2 sec (9.0-12.0)
[2020-06-10] MEDS: FOLIC ACID 1 MG TAB PO SCH (06:56)
[2020-06-10] MEDS: THIAMINE 100 MG TAB PO SCH (06:56)
[2020-06-10] MEDS: MULTIVITAMINS, THERA 1 EACH TAB PO SCH (06:56)
--- NOTE | 2020-06-10 07:32 | P.HPOR ---
History of Present Illness H&P Date: 06/10/20 Chief Complaint: Left hip pain The patient's a 54-year-old male with history of alcoholism who presents after a questionable injury at a rehab facility yesterday. He said he normally ambulates without assistive devices. He thinks his left hip marina when he twisted. He is a poor historian. He can't recall whether he said previous dislocation episodes. He can't recall which year he had his total hip arthroplasty in. Attempted reduction was performed by the ER physician. Review of Systems As per HPI Past Medical History Past Medical History: Pneumonia Additional Past Medical History / Comment(s): gastric ulcer, ETOH-liquor, beer, daily History of Any Multi-Drug Resistant Organisms: None Reported Past Surgical History: Joint Replacement (Left total hip arthroplasty), Orthopedic Surgery Additional Past Surgical History / Comment(s): total hip (unsure of which one), knee surgery on both, closed reductions, recent weight loss Past Anesthesia/Blood Transfusion Reactions: No Reported Reaction Past Psychological History: No Psychological Hx Reported Smoking Status: Current every day smoker Past Alcohol Use History: Heavy, Occasional Past Drug Use History: Marijuana Medications and Allergies Home Medications Medication Instructions Recorded Confirmed Type Acetaminophen Tab [Tylenol] 650 mg PO Q6HR PRN tab 06/02/20 Rx Ciprofloxacin HCl [Cipro] 500 mg PO BID #14 tab 06/02/20 Rx Folic Acid 1 mg PO DAILY #30 tablet 06/02/20 Rx Multivitamins, Thera [Multivitamin 1 tab PO DAILY #30 tablet 06/02/20 Rx (formulary)] Thiamine [Vitamin B-1] 100 mg PO DAILY #30 tab 06/02/20 Rx amLODIPine [Norvasc] 5 mg PO DAILY #30 tab 06/02/20 Rx carvediloL [Coreg] 6.25 mg PO BID-W/MEALS #60 tab 06/02/20 Rx Allergies Allergy/AdvReac Type Severity Reaction Status Date / Time No Known Allergies Allergy Verified 05/28/20 17:39 Physical Examination - Hip left Gait: other (Nonweightbearing) Tenderness with palpation: other (Diffuse) Pain with motion: other (Pain with any attempted range of motion) Results Moderate shortening left lower extremity Healed posterior lateral incision left hip Pain with any attempted range of motion left hip Painless range of motion right hip Distal neurovascular exam intact left lower extremity - Labs Labs: Abnormal Lab Results - Last 24 Hours (Table) 06/10/20 06/10/20 06/10/20 Range/Units 04:19 04:19 04:19 WBC 13.7 H (3.8-10.6) k/uL RBC 3.12 L (4.30-5.90) m/uL Hgb 11.5 L (13.0-17.5) gm/dL Hct 35.3 L (39.0-53.0) % MCV 113.1 H (80.0-100.0) fL MCH 36.7 H (25.0-35.0) pg Neutrophils # 10.6 H (1.3-7.7) k/uL Macrocytosis Marked A Sodium 133 L (137-145) mmol/L Glucose 100 H (74-99) mg/dL Albumin 3.0 L (3.5-5.0) g/dL Urine Protein 1+ H (Negative) Urine Bacteria Rare H (None) /hpf Urine Mucus Rare H (None) /hpf H & H 06/10/20 Range/Units 04:19 Hgb 11.5 L (13.0-17.5) gm/dL Hct 35.3 L (39.0-53.0) % Coagulation 06/10/20 Range/Units 05:30 INR 1.0 (<1.2) Result Diagrams: 06/10/20 04:19 06/10/20 04:19 - Diagnostic results Hip x-ray: image reviewed (Posterior dislocation left total hip arthroplasty) Assessment and Plan Assessment: Left total hip arthroplasty dislocation History of alcohol abuse Plan: I talked with the patient regarding his condition along with options. We'll attempt closed reduction in the operating room with the aid of fluoroscopy and anesthesia. Time with Patient: Greater than 30
[2020-06-10] MEDS: carvediloL 6.25 MG TAB PO SCH ×2 (07:59→17:07)
[2020-06-10] MEDS: amLODIPine 5 MG TAB PO SCH (07:59)
[2020-06-10] MEDS ORDERED: LACTATED RINGERS 1,000 ML IV ONE (11:21)
[2020-06-10] MEDS ORDERED: ONDANSETRON 4 MG/2 ML VIAL ONE (11:26)
--- NOTE | 2020-06-10 12:54 | P.OP ---
Date of Procedure: 06/10/20 Preoperative Diagnosis: Left total hip arthroplastyposterior dislocation Postoperative Diagnosis: Same Procedure(s) Performed: Closed reduction left hip dislocation with IV sedation/fluoroscopy Anesthesia: MAC Surgeon: Navin Padilla Estimated Blood Loss (ml): 0 Pathology: none sent Condition: stable Disposition: PACU Indications for Procedure: The patient's a 54-year-old group home resident who presents after a fall yesterday with a left posterior hip dislocation. Attempted closed reduction was performed in the emergency room by the ER physician and that was unsuccessful. Risks and benefits of repeat attempted closed reduction with IV sedation and fluoroscopy was made with the patient. He opted to proceed. He understood the risks to include persistent instability and possible need for subsequent procedures. Informed consent was obtained. Operative Findings: As below Description of Procedure: The patient was brought to the operating room, and after induction of IV sedation the hip was then reduced with longitudinal traction with the hip flexed at 90. I was able to obtain reduction. This was verified with fluoroscopy. He was felt to be stable up to 90 of flexion and in full extension. He was then transferred to the recovery room without complication. There was no blood loss. No complications were incurred.
--- NOTE | 2020-06-10 13:07 | FL ---
Fluoroscopy INDICATION: Pain FINDINGS: Images obtained: 1. IMPRESSIONS: 1. Documentation of fluoroscopy.
--- NOTE | 2020-06-10 13:08 | XR ---
Fluoroscopy INDICATION: Pain FINDINGS: Fluoroscopy time: Not recorded seconds. Images obtained: 1. IMPRESSIONS: 1. Documentation of fluoroscopy.
[2020-06-10] MEDS: HYDROmorphone 0.5 MG/0.5 ML SYRINGE IVP PRN ×2 (13:51→19:10)
--- NOTE | 2020-06-10 21:42 | CONS ---
CONSULTATION 54-year-old white male consultation status post left hip arthroplasty. The patient was sent here from the rehab center after recently discharged for alcohol withdrawal, urinary tract infection. He has his left hip alcohol when he twisted and possible dislocation. He is status post total hip arthroplasty and reduction today. PAST MEDICAL HISTORY: Alcoholism, UTI, history joint replacement, orthopedic surgery, recent weight loss, close reduction, gastric ulcer, alcohol. Liquor, beer daily. SOCIAL HISTORY: Current everyday smoker, heavy alcohol, marijuana drug use. HOME MEDICATIONS: Tylenol 650 q.6h p.r.n., Cipro 500 p.o. b.i.d., folic acid 1 mg daily, multivitamin daily, Norvasc 5 mg daily, Coreg 6.25 b.i.d. PHYSICAL EXAMINATION: Vital signs reviewed. Cardiovascular S1, S2. Lungs clear. GI soft. Hematology negative Homans. White count 13.7, hemoglobin 11.5. ASSESSMENT: 1. Status post hip dislocation with replacement with left total hip arthroplasty dislocation. 2. History of alcohol abuse. 3. urinary tract infection. PLAN: Continue with home medications. The patient should have a good postop course. Get back to the rehab center. MMODL / IJN: [id number] /
[2020-06-11] MEDS: SODIUM CHLORIDE 0.9% 1,000 ML IV SCH ×4 (00:10→20:02)
[2020-06-11] MEDS: HYDROmorphone 0.5 MG/0.5 ML SYRINGE IVP PRN ×3 (01:09→13:57)
[2020-06-11] MEDS: FOLIC ACID 1 MG TAB PO SCH (07:13)
[2020-06-11] MEDS: THIAMINE 100 MG TAB PO SCH (07:13)
[2020-06-11] MEDS: carvediloL 6.25 MG TAB PO SCH ×2 (07:13→17:16)
[2020-06-11] MEDS: MULTIVITAMINS, THERA 1 EACH TAB PO SCH (07:13)
[2020-06-11] MEDS: amLODIPine 5 MG TAB PO SCH (07:13)
--- NOTE | 2020-06-11 08:32 | CT ---
EXAMINATION TYPE: CT brain wo con DATE OF EXAM: 06/11/2020 HISTORY: Memory issues. Rule out vascular stroke CT DLP: 1188.4 mGycm. Automated Exposure Control for Dose Reduction was Utilized. TECHNIQUE: CT scan of the head is performed without contrast. COMPARISON: Memory issues. Concern for stroke. FINDINGS: There is no acute intracranial hemorrhage, midline shift, or mass effect identified. There are subcen timeter hypodensities of the bilateral thalami, which are age-indeterminate on the right (205:30) and appears more chronic on the left (205:29). There is also a 1 cm hypodensity of the right frontal lob e which may represent old lacunar infarct. The ventricles, sulci, and cisterns are normal in size and configuration. No extra-axial fluid collection. Bones and extracranial soft tissues are intact. The globes are gross ly symmetric. Visualized sinuses and mastoid air cells are clear. IMPRESSION: 1. Subcentimeter hypodensities of the bilateral thalami may represent age-indeterminate infarct. Foll ow-up with MRI is recommended. Additional hypodensity of the right frontal lobe appears chronic. 2. No acute intracranial hemorrhage, midline shift, or mass effect. A [place] critical message alert has been initiated for Navin Padilla MD via the [employer] Critical Results System on 06/11/2020 8:27 AM. This message alert has been sent to Navin Padilla MD v ia the preferences provided by the clinician for the receipt of Radiology Critical Findings. Message ID [id number]. Dr. Jaclyn Manzano discussed findings with patients floor KEANU Coats RN via the phone on 06/11/2020 at 8:30 AM, and results were acknowledged.
--- NOTE | 2020-06-11 09:33 | P.CNNES ---
History of Present Illness Consult date: 06/11/20 Requesting physician: Jaya Parks Reason for Consult: short term memory loss History of Present Illness: This is a 54-year-old Right-handed gentleman with medical history of Significant alcohol use, Right hip surgery, right knee surgery,urinary tract infection and tobacco use and per medical records he has history of alcohol withdrawal who presented to the emergency department on 06/10/2024 left hip pain. He comes from [facility]. Patient stated he got up he was having left hip pain that was significant then leg gave out and fell. Patient had an x-ray of both hips and revealed dislocation of the left prosthetic hip joint. Patient came in with left hip pain radiating to his back. On 06/10/2020 he had a closed reduction of left hip dislocation with IV sedation and fluoroscopy. The neurology team was consulted for a patient altered mental status/short-term memory loss. Upon seeing the patient. Patient was wide awake responding to all questions correctly and was able to give me a history. Patient's nurse also stated that the patient was alert oriented 3. Maybe overnight the nurse felt like she was alert oriented 1. Patient denies of having any memory memory problems. She denies denies of any focal weakness any numbness any slurred speech any difficulty swallowing any visual disturbance. Denies of any headache. Patient states that he does drink about 2-5 cans of beer daily for years. He does smoke about three quarters of a pack a day and sometimes more and he's been doing it for years. He does have significant right hip surgery knee surgery and and that's why he is at the nursing facility. He's been therefore couple days according to him. Patient's white blood cell last was is 13.7 sodium is 133. AST is 43 ALTs 28. Urinalysis analysis last done on 06/10/20 was unremarkable for any infection. During his stay in the hospital he has not had any fever. There is a vitamin B12 what is 623. TSH was done on 05/28/20 and was normal (3.0 and the). I ordered a CT of the head: And was reported as subcenterimer hypodensity in the bilateral thalami which can be chronic and also old right frontal. No acute ischemia. Was recommended to get MRI of the brain as a follow-up. I personally reviewed the images and I did not see any acute ischemia and hemorrhage myself. Patient initial blood pressure is 98.3 Fahrenheit oral and blood pressure is 102/81 oxygen saturation is 99 at room air pulse rate is 90 and respiratory is a Also the patient was discharged in 06/03/2020 after an episode of sepsis thought related to urinary tract infection. Patient is on thiamine 100 mg daily. I attempted to contact patient next of kin Jessica at [phone] but no re sponse. Review of Systems Review of system: The 12 point system was reviewed and apparent positive and negative per HPI. Past Medical History Past Medical History: Pneumonia Additional Past Medical History / Comment(s): gastric ulcer, ETOH-liquor, beer, daily History of Any Multi-Drug Resistant Organisms: None Reported Past Surgical History: Joint Replacement, Orthopedic Surgery Additional Past Surgical History / Comment(s): total hip (unsure of which one), closed reductions, recent weight loss Past Anesthesia/Blood Transfusion Reactions: No Reported Reaction Past Psychological History: No Psychological Hx Reported Smoking Status: Current every day smoker Past Alcohol Use History: Occasional Past Drug Use History: Marijuana Medications and Allergies Home Medications Medication Instructions Recorded Confirmed Type Acetaminophen Tab [Tylenol] 650 mg PO Q6HR PRN tab 06/02/20 06/10/20 Rx Folic Acid 1 mg PO DAILY #30 tablet 06/02/20 06/10/20 Rx Multivitamins, Thera [Multivitamin 1 tab PO DAILY #30 tablet 06/02/20 06/10/20 Rx (formulary)] Thiamine [Vitamin B-1] 100 mg PO DAILY #30 tab 06/02/20 06/10/20 Rx amLODIPine [Norvasc] 5 mg PO DAILY #30 tab 06/02/20 06/10/20 Rx carvediloL [Coreg] 6.25 mg PO BID-W/MEALS #60 tab 06/02/20 06/10/20 Rx Allergies Allergy/AdvReac Type Severity Reaction Status Date / Time No Known Allergies Allergy Verified 06/10/20 07:49 Physical Examination - Vital Signs Vital Signs: Vital Signs Temp Pulse Resp BP BP Pulse Ox 06/11/20 01:03 97.9 F 89 16 155/93 99 06/10/20 18:37 98.0 F 88 16 102/67 100 06/10/20 15:14 85 116/74 06/10/20 14:59 87 118/77 06/10/20 14:31 88 118/79 06/10/20 14:14 97 154/95 06/10/20 13:59 82 128/81 06/10/20 13:29 76 150/91 06/10/20 13:28 97.5 F L 78 18 133/78 98 06/10/20 13:19 76 18 124/67 99 06/10/20 13:05 79 18 129/75 99 06/10/20 12:50 85 18 127/70 97 06/10/20 11:24 98.1 F 83 18 147/86 97 Intake and Output 06/10/20 06/11/20 06/11/20 22:59 06:59 14:59 Intake Total 1000 Output Total 400 800 Balance -400 200 Intake: Oral 1000 Output: Urine 400 800 Other: Voiding Method Urinal Urinal # Voids 3 GENERAL: The patient is lying in bed and is not in acute distress. CHEST: The heart rate is regular rate rhythm. No murmurs to auscultation. LUNG: Clear to auscultation bilaterally no wheezing noted throughout. Not la bored breathing. ABDOMEN/GI: Bowel sounds present in all 4 quadrants. No tenderness to palpation throughout. NEUROLOGICAL: Higher mental function: The patient is awake, alert, oriented to self, place and time. Able to identify objects such as pen, glassess and watch. Patient is following simple and complex commands. No aphasia and no neglect. Cranial nerves: The pupils are round, equal and reactive to light and accommodation. Visual cintron are full to confrontation throughout. Extraocular movement is intact no nystagmus is noted. Facial sensation is normal to touch throughout. The facial strength is normal throughout. Hearing is normal bilaterally to hand rub. Tongue is midline and moved [id number] without any difficulty. No dysarthria is noted. Shoulder shrug is normal bilaterally. Motor: Gait is defered because of condition. The strength is 5 over 5 throughout bilateral upper extremities. Not able to assess lower extremties because of current surgery. He has intact good strength of bilateral feet 5/5. Normal tone and bulk. Cerebellum: Normal finger to nose bilaterally. Sensation: Sensation is normal to touch throughout. Reflexes (right/left):2+ in bilaterally upper extremities and not able to assess lower extremities. Plantars are downgoing bilaterally. Results - Laboratory Findings CBC and BMP: 06/10/20 04:19 06/10/20 04:19 Abnormal Lab Findings: Abnormal Labs 06/10/20 06/10/20 06/10/20 04:19 04:19 04:19 WBC 13.7 H RBC 3.12 L Hgb 11.5 L Hct 35.3 L MCV 113.1 H MCH 36.7 H Neutrophils # 10.6 H Macrocytosis Marked A Sodium 133 L Glucose 100 H Albumin 3.0 L Urine Protein 1+ H Urine Bacteria Rare H Urine Mucus Rare H Assessment and Plan Assessment: 54-year-old Right-handed gentleman with medical history of Significant alcohol use, Right hip surgery, right knee surgery,urinary tract infection and tobacco use and per medical records he has history of alcohol withdrawal who presented to the emergency department on 06/10/2024 left hip pain. Revealed dislocation of the left prosthetic hip joint s/p closed reduction. Neurology team consulted for altered mental status. Upon seeing the patient he was alert and oriented X3 and was able to give me history. His nurse felt he was alert, oriented X3. He does have Significant history of all call use as well as tobacco use on a daily basis. Questionable encephalopathic A that was transient possibly could be due to his current post surgery---resolved Possible old stroke and not acute (CT of the head showed subcenterimer hypodensity in the bilateral thalami which can be chronic and also old right frontal. No acute ischemia) Left his dislocation s/p reduction Alcohol use Tobacco use Plan: -In the patient's mentation I feel the patient is alert oriented 3. I felt possibly has transient encephalopathic to be due to his surgery that he just recently had an hospital stay he is back to his baseline according to the nurse she's not fluctuating with mentation-mohan. There is no need for an EEG at this time. -sodium is 133. AST is 43 ALTs 28. Urinalysis analysis last done on 06/10/20 was unremarkable for any infection. During his stay in the hospital he has not had any fever. There is a vitamin B12 what is 623. TSH was done on 05/28/20 and was normal (3.0 and the). -Will try to obtain MRI Brain to rule out acute stroke if patient is stable. If unable because of surgery then recommend as outpatient. -Recommend patient to be on ASA 81mg and Lipitor 20mg daily for secondary stroke prophylaxis. I ordered ammonia level. -Patient was counseled to stop drinking all. -He was counseled on tobacco cessation. -The patient is currently on thiamine 100 mg daily. Thanks for the consult Deniz Wilson MD Neuro-hospitalist Time with Patient: Greater than 30
--- NOTE | 2020-06-11 14:00 | P.PN ---
Subjective Progress Note Date: 06/11/20 Principal diagnosis: Status post relocation of dislocated left total hip arthroplasty Patient is evaluated today at bedside, his sister is also present at bedside. He is resting comfortably, is utilizing the abductor pillow. He has no acute pain in the left hip at this time. He was able to ambulate earlier today with no difficulties. He is being followed by both internal medicine and neurology. Objective - Vital Signs Vital signs: Vital Signs Temp 99.2 F 06/11/20 07:00 Pulse 93 06/11/20 07:00 Resp 19 06/11/20 07:00 BP 149/84 06/11/20 07:00 Pulse Ox 99 06/11/20 07:00 Intake & Output 06/10/20 06/11/20 06/11/20 18:59 06:59 18:59 Intake Total 1200 1000 Output Total 0 1200 Balance 1200 -200 Weight 115.2 kg Intake: IV 200 Intake, IV Titration 1000 Amount Sodium Chloride 0.9% 1, 1000 000 ml @ 150 mls/hr IV . Q6H40M [facility] Rx#:[id number] Oral 1000 Output: Urine 1200 Estimated Blood Loss 0 Other: Voiding Method Urinal # Voids 3 - Exam Left lower extremity: Abductor pillows in good position and condition. There is no significant ecchymosis or soft tissue swelling in the extremity. Sensation to light touch throughout the extremities intact. Painless range of motion with regards to internal and external rotation of the left hip. Calf is soft, no tenderness with palpation. Dorsalis pedis pulses 2+. - Labs CBC & Chem 7: 06/10/20 04:19 06/10/20 04:19 Assessment and Plan Assessment: Status post relocation of left total hip arthroplasty dislocation Other medical comorbidities Plan: Discussed with the patient's daughter the current condition with his left hip. She states that this is probably his fourth time dislocating. He had his left hip replaced by Dr. Carlos Reyes [facility] about a year ago. She states ever since the surgery he's had continuous problems with the left hip. Appreciate neurology recommendations at this time, nursing believes he will be scheduled for his MRI of the brain tomorrow. Appreciate medical recommendations With regards to the left hip, we recommend continuous use of the abductor pillow while lying flat. Also recommend weight-bear as tolerated with walker. Total hip precautions were discussed with the patient and family today at bedside. Recommend follow-up in the outpatient setting with the original operating surgeon to discuss further treatment. Discussed with nursing to transition the admission to internal medicine at this time, no orthopedic surgical intervention recommended at this time. We'll be available for any further questions regarding this patient. Time with Patient: Less than 30
--- NOTE | 2020-06-11 15:32 | CONS ---
CONSULTATION DATE OF CONSULTATION: 06/11/2020 REASON FOR CONSULTATION: Altered mental status and short-term memory problem. IDENTIFYING DATA: The patient is a 54-year-old male who was just recently discharged from the hospital on June 03 to [facility]. The patient was [facility] from the [facility] on [facility], as he did have a fall. The patient did undergo surgery on June 10, 2020, closed reduction of the left hip dislocation with IV sedation. HISTORY OF PRESENT ILLNESS: I did approach the patient, who stated, "I was so confused yesterday and also this morning. I did not know exactly if I am in [facility]." The patient denied having any memory problem or short-term deficit. He was very pleasant and cooperative. He denied any depression symptom or psychotic symptom. He stated that he has been drinking almost on a daily basis since age 12. It is either a couple of beers and in addition he does drink half a pint of hard liquor once a week. He denied having any withdrawal symptoms from alcohol. However, on his previous admission from May 29 to June 03, he was treated for alcohol withdrawal with Ativan. PAST PSYCHIATRIC HISTORY: There is no previous inpatient or outpatient treatment. ALLERGIES: NO KNOWN ALLERGY. PAST MEDICAL HISTORY: Left reduction of dislocated hip, history of urinary tract infection and history of old stroke. SUBSTANCE USE HISTORY: As I mentioned before, he has been drinking alcohol almost on a daily basis since age 12; according to him, it is a couple of beers, but he said, "Sometimes it is up to 6 or 7. It depends on the day." He said he does smoke marijuana occasionally. He denied any rehabilitation program. SOCIAL HISTORY: The patient was born and raised in [place]. He was for 20 years and his marriage ended by divorce. He has 2 sons, age 36 and 32. His younger son is living with him. 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 He said that he has been in the [facility] from June [facility] until June 10, when he came back to the hospital. Prior to this he was living in [place]. MENTAL STATUS EXAMINATION: The patient presented as a pleasant, cooperative male who was wearing eyeglasses. He had a full ludwig and mustache. He is alert and oriented to person. Regarding place, he stated at first it was [facility], then he corrected himself; he said, "No, it is hospital, but I do not remember the name of this hospital." He was oriented to the month and the year, but for today's date he told me it is June 14 instead of June 11. He was able to tell me the season, the state, the county. He could not tell me which floor he is on or which room he is in. He recalled one out of three objects after one minute and zero out of three objects after 5 minutes. He did simple calculations and he was able to spell his last name backwards. Speech is coherent with normal rate, rhythm and volume. He has no articulation difficulty. He denied any suicidal ideation and he denied any homicidal ideation. He denied feeling hopeless or helpless. He did not express any paranoia or ideas of reference or delusional thinking. His intellectual function is average. Insight and judgment are fair. ASSESSMENT: This patient has a long history of alcohol use disorder; however, he said that he did not drink since he was admitted on May 29, but he did have a urinary tract infection on previous admission and he was treated by antibiotic. My impression is that it is post-operative delirium reaction, and it has resolved. His score on the mini mental status exam is 22/30. Usually we DX Neurocognitive disorder if score is 21 or less. However, I did explain to him that if he continues to drink after his rehabilitation, he would have most probably neurocognitive deficits from alcohol. Psychiatrist will sign off. Thank you for the consultation. ALEX / MAYITO: [id number] / MARILYN
--- NOTE | 2020-06-11 23:41 | PN ---
PROGRESS NOTE 54-year-old white male with short-term memory problem, status post left hip dislocation. CARDIOVASCULAR: S1, S2. Lungs clear. GI soft. Neurologic: Alert and orient x 3. ASSESSMENT: 1. Urinary tract infection. 2. Cognitive impairment, possibly secondary to alcohol. CT shows possible strokes or MRI. MMODL / IJN: [id number] /
[2020-06-12] MEDS: SODIUM CHLORIDE 0.9% 1,000 ML IV SCH ×3 (01:13→17:53)
[2020-06-12] MEDS: HYDROmorphone 0.5 MG/0.5 ML SYRINGE IVP PRN ×4 (01:41→16:41)
[2020-06-12] MEDS: THIAMINE 100 MG TAB PO SCH (08:31)
[2020-06-12] MEDS: MULTIVITAMINS, THERA 1 EACH TAB PO SCH (08:31)
[2020-06-12] MEDS: amLODIPine 5 MG TAB PO SCH (08:31)
[2020-06-12] MEDS: carvediloL 6.25 MG TAB PO SCH ×2 (08:31→17:52)
[2020-06-12] MEDS: FOLIC ACID 1 MG TAB PO SCH (08:33)
--- NOTE | 2020-06-12 09:42 | MR ---
EXAMINATION TYPE: MR brain wo con DATE OF EXAM: 06/12/2020 COMPARISON: CT brain 06/11/2020 HISTORY: Rule out stroke from CT head (thalamus) CONTRAST: Performed utilizing 0 mL intravenous Gadavist gadolinium contrast. TECHNIQUE: Multiplanar, multiecho imaging on a 3.0 An magnet is performed through the brain. Stud y is performed within 24 hours of arrival to the hospital. The craniovertebral junction is normal. The pituitary is normal. Diffusion-weighted imaging is performed. No abnormal hyperintensity is present to suggest an acute i ntracranial infarct or acute ischemic change. There is an area of hyperintensity on T2-weighted sequences which is isointense on inversion recovery at the inferior right basal ganglion. This area corresponds to the abnormality on CT examination. Fi ndings can be compatible with a Virchow-Dewayne's space or less likely old lacunar infarct. No suspicio us acute intracranial changes are evident. There are patchy periventricular white matter hyperintensities which are nonspecific previously great er than expected for the patient's age. Microvascular ischemic changes within the differential. Other etiologies would include vasculitis, multiple sclerosis, Lyme disease. Largest is above the right la teral ventricle within the centrum semiovale measuring 0.7 cm. Series 801 image 22. Subcortical punct ate white matter changes are evident. Ventricles and sulci are appropriate for the patient age. IMPRESSIONS: 1. Scattered periventricular and subcortical white matter changes, likely on the basis of chronic whi te matter ischemic change. Differential diagnosis could include but is not limited to multiple sclero sis, Lyme disease, vasculitis. 2. The 0.9 cm T2 hyperintensity within the inferior right basal ganglion corresponding to the CT abno rmality can be compatible with a Virchow-Dewayne's space or old lacunar infarct. No acute ischemic powell ge at this level is identified.
[2020-06-12 14:52] VITALS: BP 136/77; PULSE 94; RESP 18; TEMP 98.5
[2020-06-12] MEDS ORDERED: ASPIRIN 81 MG PO SCH (15:45)
[2020-06-12] MEDS ORDERED: ATORVASTATIN 40 MG TAB PO SCH (15:45)
--- NOTE | 2020-06-12 19:20 | P.PN ---
Subjective Progress Note Date: 06/12/20 Principal diagnosis: Transient encephalopathy Left hip dislocation s/p closed reduction Patient was seen at bedside and was doing well. Denies of any new weakness, numbness, visual disturbance. He had no further change in mentation. Objective - Vital Signs Vital signs: Vital Signs Temp 98.5 F 06/12/20 14:52 Pulse 94 06/12/20 14:52 Resp 18 06/12/20 16:00 BP 136/77 06/12/20 14:52 Pulse Ox 99 06/12/20 14:52 Intake & Output 06/12/20 06/12/20 06/13/20 06:59 18:59 06:59 Intake Total 700 600 Output Total 1900 650 Balance -1200 -50 Intake: Intake, IV Titration 600 Amount Sodium Chloride 0.9% 1, 600 000 ml @ 150 mls/hr IV . Q6H40M [facility] Rx#:[id number] Oral 700 Output: Urine 1900 650 Other: Voiding Method Urinal # Voids 2 1 - Exam GENERAL: The patient is lying in bed and is not in acute distress. CHEST: The heart rate is regular rate rhythm. No murmurs to auscultation. LUNG: Clear to auscultation bilaterally no wheezing noted throughout. Not labored breathing. ABDOMEN/GI: Bowel sounds present in all 4 quadrants. No tenderness to palpation throughout. NEUROLOGICAL: Higher mental function: The patient is awake, alert, oriented to self, place and time. Able to identify objects such as pen, glassess and watch. Patient is following simple and complex commands. No aphasia and no neglect. Cranial nerves: The pupils are round, equal and reactive to light and accommodation. Visual cintron are full to confrontation throughout. Extraocular movement is intact no nystagmus is noted. Facial sensation is normal to touch throughout. The facial strength is normal throughout. Hearing is normal bilaterally to hand rub. Tongue is midline and moved [id number] without any difficulty. No dysarthria is noted. Shoulder shrug is normal bilaterally. Motor: Gait is defered because of condition. The strength is 5 over 5 throughout bilateral upper extremities. Not able to assess lower extremties because of current surgery. He has intact good strength of bilateral feet 5/5. Normal tone and bulk. Cerebellum: Normal finger to nose bilaterally. Sensation: Sensation is normal to touch throughout. Reflexes (right/left):2+ in bilaterally upper extremities and not able to assess lower extremities. Plantars are downgoing bilaterally. - Labs CBC & Chem 7: 06/10/20 04:19 06/10/20 04:19 Assessment and Plan Assessment: 54-year-old Right-handed gentleman with medical history of Significant alcohol use, Right hip surgery, right knee surgery,urinary tract infection and tobacco use and per medical records he has history of alcohol withdrawal who presented to the emergency department on 06/10/2024 left hip pain. Revealed dislocation of the left prosthetic hip joint s/p closed reduction. Neurology team consulted for altered mental status. Upon seeing the patient he was alert and oriented X3 and was able to give me history. His nurse felt he was alert, oriented X3. He does have Significant history of all call use as well as tobacco use on a daily basis. Questionable encephalopathic A that was transient possibly could be due to his current post surgery---resolved No acute stroke Left his dislocation s/p reduction Alcohol use Tobacco use Plan: -The patient's mentation, I feel the patient is alert oriented 3. I felt possibly has transient encephalopathic to be due to his surgery that he just recently had an hospital stay he is back to his baseline according to the nurse she's not fluctuating with mentation-mohan. There is no need for an EEG at this time. -sodium is 133. AST is 43 ALTs 28. Urinalysis analysis last done on 06/10/20 was unremarkable for any infection. During his stay in the hospital he has not had any fever. There is a vitamin B12 what is 623. TSH was done on 05/28/20 and was normal (3.0 and the). Ammonia level <9. CT of the head showed subcenterimer hypodensity in the bilateral thalami which can be chronic and also old right frontal. No acute ischemia -MRI Brain: Scattered periventricular and subcortical white matter changes, likely on the basis of chronic white matter change. There have there is hyperintensity on the T2 over the right basal ganglia possibly old lacunar infarct. -Continue ASA 81mg and Lipitor 40mg daily for secondary stroke prophylaxis. -Patient was counseled to stop drinking all. -He was counseled on tobacco cessation. -The patient is currently on thiamine 100 mg daily. The patient is clear from neurology team. Please reconsult if needed. Deniz Wilson MD Neuro-hospitalist Time with Patient: Less than 30
--- NOTE | 2020-06-12 20:50 | DS ---
DISCHARGE SUMMARY DISCHARGE MEDICATIONS: 1. Aspirin 81 mg daily. 2. Lipitor 40 mg daily. 3. Coreg 6.25 b.i.d. 4. Norvasc 5 mg daily. 5. Thiamine 100 mg daily. 6. Folic acid 1 mg daily. 7. Multivitamin 1 daily. CONDITION: Stable. PROGNOSIS: Guarded. Ambulate as tolerated. DISCHARGE DIAGNOSES: 1. Hip dislocation, left. 2. Hypokalemia. 3. Hypomagnesemia. 4. Hypertension. 5. Cerebrovascular accident. Risk factor modification. MRI and CT scan of the brain were worked up for memory loss. He probably had a recent CVA or TIA due to uncontrolled hypertension and risk factors before he came to the hospital. He has no signs of infection here. Risk factor modification. We added a statin, aspirin. Continue blood pressure medicines. Alcohol withdrawal. Withholding of any alcohol. Follow up closely as an outpatient. He will be sent back for rehab. [facility]. Diet is regular. MMODL / IJN: [id number] /
--- NOTE | 2020-06-16 07:34 | CDI ---
Documentation Clarification Form Date: 06/15/20 From: Katharine Dominguez Phone: If you have a question about this query, please contact Katelynn Renee, Efficiency Engineer at [phone] between 8am and 5pm. Admit Date: 06/10/20 Discharge Date: 06/12/20 Patient Name: LAKISHA SEAY Visit Number: [id number] ATTENTION: The Clinical Documentation Specialists (CDI) and [facility] Coding Staff appreciate your assistance in clarifying documentation. Please respond to the clarification below the line at the bottom and electronically sign. The CDI & [facility] Coding staff will review the response and follow-up if needed. Please note: Queries are made part of the Legal Health Record. If you have any questions, please contact the author of this message via ITS. Dear Dr. Jaya Parks, Conflicting documentation has been found in the medical record: Per discharge summary, documented hypomagesemia and hypokalemia. No magnesium lab results available in view chart. Potassium lab results are 4.0 (range is 3.5/5.1). History/Risk Factors: dislocation of left hip prosthesis, postop delirium, alcohol dependence w transient encephalopathy, HTN Treatment: Did not receive magnesium or potassium In your opinion, what is the most clinically appropriate diagnosis for this patient? Hypomagesemia and hypokalemia ruled out Hypomagesemia and hypokalemia confirmed Other explanation of clinical findings Unable to determine (no explanation for clinical findings) MTDD
--- NOTE | 2020-06-19 08:23 | CDI ---
Documentation Clarification Form Date: 06/15/20 From: Katharine Dominguez Phone: If you have a question about this query, please contact Katelynn Renee, Medical Transcription Editor at [phone] between 8am and 5pm. Admit Date: 06/10/20 Discharge Date: 06/12/20 Patient Name: LAKISHA SEAY Visit Number: [id number] ATTENTION: The Clinical Documentation Specialists (CDI) and [facility] Coding Staff appreciate your assistance in clarifying documentation. Please respond to the clarification below the line at the bottom and electronically sign. The CDI & [facility] Coding staff will review the response and follow-up if needed. Please note: Queries are made part of the Legal Health Record. If you have any questions, please contact the author of this message via ITS. Dear Dr. Jaya Parks, Conflicting documentation has been found in the medical record: Per discharge summary, documented hypomagesemia and hypokalemia. No magnesium lab results available in view chart. Potassium lab results are 4.0 (range is 3.5/5.1). History/Risk Factors: dislocation of left hip prosthesis, postop delirium, alcohol dependence w transient encephalopathy, HTN Treatment: Did not receive magnesium or potassium In your opinion, what is the most clinically appropriate diagnosis for this patient? Hypomagesemia and hypokalemia ruled out Hypomagesemia and hypokalemia confirmed Other explanation of clinical findings Unable to determine (no explanation for clinical findings) MTDD
--- NOTE | 2020-06-22 19:02 | PN ---
PROGRESS NOTE The patient was admitted with hypomagnesemia and hypokalemia. MMLEI / SHAHEEDN: [id number] /
== END 2020-06-12 22:09 ==
LOC: EC 00:59 → INTOOBSV 04:15 → 4SSUR 04:15 → UNDODISIN 06-12 22:09
PROVIDERS: ADMIT Family Medicine; ATTEND Family Medicine
DX: T84.021A Dislocation of internal left hip prosthesis, initial encounter (principal); W19.XXXA Unspecified fall, initial encounter; E83.42 Hypomagnesemia; E87.6 Hypokalemia; N39.0 Urinary tract infection, site not specified; G93.49 Other encephalopathy; F10.21 Alcohol dependence, in remission; Z20.828 Contact with and (suspected) exposure to other viral communicable diseases; R41.82 Altered mental status, unspecified; R41.3 Other amnesia; R29.6 Repeated falls; Z87.01 Personal history of pneumonia (recurrent); Z87.11 Personal history of peptic ulcer disease; F17.200 Nicotine dependence, unspecified, uncomplicated; R63.4 Abnormal weight loss; Z87.440 Personal history of urinary (tract) infections; Z79.899 Other long term (current) drug therapy
CPT/HCPCS: 27265 ×2; 96374; 99285; 99152; 99153; 97530; 97162; 97535; 97166; 80053; 82607; 82140; 85025; 85610; 81001; 73501; 73502; 70450; 70551; G0378 ×3; U0003; J2405; J2704; J1170 ×3; 99284